=== PATIENT | female | born 1950 | race American Indian/Alaskan Native ===

== ENCOUNTER 2017-04-24 18:08 | Inpatient (IN) | payer MEDICARE ==
[2017-04-24 20:12] LABS: Albumin 2.2 g/dL (3.9-5); Albumin/Globulin Ratio 0.6 %; Bilirubin,Total 0.3 mg/dL (0.1-1.2); Calcium 7.3 mg/dL (8.4-10.2); Potassium 4.6 mmol/L (3.6-5.0); Total Protein 5.6 g/dL (6.3-8.2)
[2017-04-24 20:17] LABS: Mean Corpuscular HGB Conc 29 % (30-34); Mean Corpuscular Hemoglobin 31 pg (28-32); Mean Corpuscular Volume 107 fl (79-97); Platelet Count 361 K/mm3 (140-440); Red Blood Count 2.31 M/mm3 (3.65-5.03)
[2017-04-24 20:18] LABS: BUN/Creatinine Ratio 13.58
[2017-04-24 20:20] LABS: Chloride 94.6 mmol/L (98-107)
[2017-04-24 20:34] LABS: Hematocrit 24.8 % (30.3-42.9); Hemoglobin 7.1 gm/dl (10.1-14.3); Red Cell Distribution Width 24.8 % (13.2-15.2); White Blood Count 89.1 K/mm3 (4.5-11.0)
[2017-04-24 21:27] LABS: INR 1.41 (0.87-1.13)
[2017-04-24 21:28] LABS: Partial Thromboplastin Time 34.6 Sec. (24.2-36.6)
[2017-04-24 21:40] LABS: Basophils % (Manual) 0 % (0.0-1.8); Blastocytes % (Manual) 0 %; Eosinophils % (Manual) 0 % (0.0-4.3)
[2017-04-24 21:41] LABS: Anisocytosis 2+; Diff Status Complete; Platelet Estimate Consistent w Auto; Poikilocytosis 1+
[2017-04-24 21:45] LABS: Dohle Bodies Rare
--- NOTE | 2017-04-25 02:26 | Emergency Department Report ---
ED General Adult HPI - General Chief complaint: Medical Clearance Stated complaint: MISSED DIALYSIS Time Seen by Provider: 04/24/17 20:12 Source: patient, EMS Mode of arrival: Stretcher Limitations: Physical Limitation - History of Present Illness Initial comments: Pt has hx of ESRD on HD. Pt presents to ED requesting to start back on her dialysis. Her last dialysis was3 week ago Pt has h of lung mass, she claims she missed hr dialysis because she was admitted for lung biopsy of her lung mass, Pt has generalize body aches snd pains -: week(s) (3) - Related Data Home Medications Medication Instructions Recorded Confirmed Last Taken Insulin Glargine,Hum.rec.anlog 60 units SQ QHS 01/13/17 03/29/17 03/28/17 [T[place]anthao Solostar] NovoLOG Flexpen 20 units SQ QAC 03/03/17 03/29/17 03/29/17 Acetaminophen [Acetaminophen TAB] 650 mg PO Q6HR PRN 03/29/17 03/29/17 Unknown Previous Rx's Medication Instructions Recorded Last Taken Type ALBUTEROL NEB's [Proventil 0.083% 2.5 mg IH TIDRT PRN #30 nebu 03/21/17 Rx NEBS] Apixaban [Eliquis] 5 mg PO BID #60 tablet 03/21/17 03/29/17 Rx Carvedilol [Coreg] 3.125 mg PO BID 30 Days 03/21/17 03/29/17 Rx Folic Acid/Vit B Comp W-C [Renal 1 cap PO QDAY #30 capsule 03/21/17 03/29/17 Rx Caps] Acetaminophen [Acetaminophen TAB] 650 mg PO Q4H PRN #30 tablet 04/07/17 Unknown Rx Bisacodyl [Dulcolax suppos] 10 mg AL QDAY PRN #30 supp.rect 04/07/17 Unknown Rx Magnesium Hydroxide [Milk of 30 ml PO Q4H PRN #30 oral.liqd 04/07/17 Unknown Rx Magnesia] Allergies Allergy/AdvReac Type Severity Reaction Status Date / Time No Known Allergies Allergy Verified 03/29/17 21:42 ED Review of Systems ROS: Stated complaint: MISSED DIALYSIS Other details as noted in HPI Comment: All other systems reviewed and negative Constitutional: chills, malaise, weakness Eyes: denies: eye pain, eye discharge, vision change ENT: denies: throat pain, dental pain, hearing loss, epistaxis Respiratory: cough, shortness of breath. denies: no symptoms reported, SOB with exertion Cardiovascular: chest pain, edema, syncope, paroxysmal nocturnal dyspnea. denies: palpitations, dyspnea on exertion Endocrine: no symptoms reported Gastrointestinal: denies: constipation, hematemesis Musculoskeletal: back pain, myalgia. denies: joint swelling Skin: denies: change in color, change in hair/nails, other Neurological: headache, weakness. denies: numbness, paresthesias ED Past Medical Hx - Past Medical History Previous Medical History?: Yes Hx Hypertension: Yes (EF 55-60 (03/12)) Hx Diabetes: Yes (insulin dependent) Hx Arthritis: Yes Hx HIV: No Additional medical history: mass found in rt lung @ [facility] - Surgical History Past Surgical History?: Yes Hx Coronary Stent: No Additional Surgical History: biopsy x2 on rt lung - Social History Smoking Status: Former Smoker Substance Use Type: None - Medications Home Medications: Home Medications Medication Instructions Recorded Confirmed Last Taken Type Insulin Glargine,Hum.rec.anlog 60 units SQ QHS 01/13/17 03/29/17 03/28/17 History [[place]jeo Solostar] NovoLOG Flexpen 20 units SQ QAC 03/03/17 03/29/17 03/29/17 History ALBUTEROL NEB's [Proventil 0.083% 2.5 mg IH TIDRT PRN #30 nebu 03/21/1703/29/17 Rx NEBS] Apixaban [Eliquis] 5 mg PO BID #60 tablet 03/21/17 03/29/17 03/29/17 Rx Carvedilol [Coreg] 3.125 mg PO BID 30 Days 03/21/17 03/29/17 03/29/17 Rx Folic Acid/Vit B Comp W-C [Renal 1 cap PO QDAY #30 capsule 03/21/17 03/29/1710/10 Rx Caps] Acetaminophen [Acetaminophen TAB] 650 mg PO Q6HR PRN 03/29/17 03/29/17 Unknown History Acetaminophen [Acetaminophen TAB] 650 mg PO Q4H PRN #30 tablet 04/07/17 Unknown Rx Bisacodyl [Dulcolax suppos] 10 mg AL QDAY PRN #30 supp.rect 04/07/17 Unknown Rx Magnesium Hydroxide [Milk of 30 ml PO Q4H PRN #30 oral.liqd 04/07/17 Unknown Rx Magnesia] ED Physical Exam - General Limitations: Physical Limitation General appearance: alert, anxious, in distress (moderate distress) - Head Head exam: Present: atraumatic, normocephalic - Eye Eye exam: Present: normal appearance, PERRL, EOMI. Absent: scleral icterus Pupils: Present: normal accommodation - ENT ENT exam: Present: normal exam, normal orophraynx, mucous membranes moist - Neck Neck exam: Present: normal inspection, tenderness, full ROM. Absent: meningismus - Respiratory Respiratory exam: Present: wheezes (mild scattered), decreased breath sounds - Cardiovascular Cardiovascular Exam: Present: regular rate, normal rhythm, normal heart sounds. Absent: bradycardia, tachycardia - GI/Abdominal GI/Abdominal exam: Present: soft, distended, tenderness (diffuse), guarding, hypoactive bowel sounds - Rectal Rectal exam: Present: deferred - Extremities Exam Extremities exam: Present: normal inspection, tenderness (both legs), pedal edema - Back Exam Back exam: Present: tenderness, muscle spasm, vertebral tenderness - Neurological Exam Neurological exam: Present: alert, altered, oriented X3, CN II-XII intact ED Course Vital Signs 04/24/17 04/24/17 04/24/17 19:01 19:08 20:00 Temperature 97.5 F L Pulse Rate 86 89 Respiratory 16 19 Rate Blood Pressure 169/65 141/71 Blood Pressure [Left] O2 Sat by Pulse 100 100 100 Oximetry 04/24/17 04/24/17 04/24/17 21:00 22:00 23:00 Temperature Pulse Rate 90 91 H 89 Respiratory 13 18 18 Rate Blood Pressure 141/71 141/71 141/71 Blood Pressure [Left] O2 Sat by Pulse 100 100 100 Oximetry 04/25/17 04/25/17 04/25/17 00:00 01:00 03:00 Temperature Pulse Rate 91 H 89 Respiratory 17 17 18 Rate Blood Pressure 141/71 130/64 Blood Pressure [Left] O2 Sat by Pulse 100 100 100 Oximetry 04/25/17 03:48 Temperature 98 F Pulse Rate 107 H Respiratory 20 Rate Blood Pressure Blood Pressure 146/70 [Left] O2 Sat by Pulse 97 Oximetry - Consultations Consultation #1: 04/25/17 02:25 D/w Dr Johnson, [place] Wheeler on-jen for [facility]. He advised I admit pt to hospitalist for consult Consultation #2: 04/25/17 02:40 Discussed with Hospitalist, he accepts pt's admission ED Medical Decision Making - Lab Data Result diagrams: 04/24/17 19:29 04/24/17 19:29 Critical Care Time: No Critical care attestation.: If time is entered above; I have spent that time in minutes in the direct care of this critically ill patient, excluding procedure time. ED Disposition Clinical Impression: End stage renal disease on dialysis Disposition: OP ADMIT IP TO THIS HOSP Is pt being admited?: Yes Does the pt Need Aspirin: Yes Condition: Serious Time of Disposition: 03:25
--- NOTE | 2017-04-25 02:47 | History and Physical Report ---
History of Present Illness Date of examination: 04/25/17 Date of admission: 04/25/17 Chief complaint: Nausea and vomiting, Diarrhea Missed dialysis for 3 weeks History of present illness: Patient is 66 -year-old with history of hypertension, and diabete,s coronary disease ,hyperlipidemia , DVT. She also has a history of lung mass. She was sent in [facility] because of nausea, vomiting, diarrhea and also she had missed dialysis for 3 weeks. History obtained from patient and son at bedside. According to them , patient had initially declined dialysis for 3 weeks however she had changed her mind and now wants to have dialysis done. No chest pain or shortness of breath. In ED, she is afebrile, but has marked leukocytosis. She will be admitted for further management Past History Past Medical History: CAD, diabetes, DVT (right internal jugular), hypertension , hyperlipidemia, stroke, other (Lung mass) Past Surgical History: Other (av fistula) Social history: lives with family, full code. denies: smoking (Former smoker), alcohol abuse Medications and Allergies Allergies Allergy/AdvReac Type Severity Reaction Status Date / Time No Known Allergies Allergy Verified 03/29/17 21:42 Home Medications Medication Instructions Recorded Confirmed Last Taken Type Insulin Glargine,Hum.rec.anlog 60 units SQ QHS 01/13/17 03/29/17 03/28/17 History [Manuel Jo] NovoLOG Flexpen 20 units SQ QAC 03/03/17 03/29/17 03/29/17 History ALBUTEROL NEB's [Proventil 0.083% 2.5 mg IH TIDRT PRN #30 nebu 03/21/1703/29/17 Rx NEBS] Apixaban [Eliquis] 5 mg PO BID #60 tablet 03/21/17 03/29/17 03/29/17 Rx Carvedilol [Coreg] 3.125 mg PO BID 30 Days 03/21/17 03/29/17 03/29/17 Rx Folic Acid/Vit B Comp W-C [Renal 1 cap PO QDAY #30 capsule 03/21/17 03/29/1710/10 Rx Caps] Acetaminophen [Acetaminophen TAB] 650 mg PO Q6HR PRN 03/29/17 03/29/17 Unknown History Acetaminophen [Acetaminophen TAB] 650 mg PO Q4H PRN #30 tablet 04/07/17 Unknown Rx Bisacodyl [Dulcolax suppos] 10 mg HI QDAY PRN #30 supp.rect 04/07/17 Unknown Rx Magnesium Hydroxide [Milk of 30 ml PO Q4H PRN #30 oral.liqd 04/07/17 Unknown Rx Magnesia] Review of Systems All systems: negative (No chest pain, no shortness of breath,no fever. All other systems reviewed and are negative) Exam - Physical Exam Narrative exam: Gen Appearance: Not in acute distress, obese HEENT: normocephalic, atraumatic Neck: supple, no JVD Lungs: Clear to auscultation, bilaterally, no rales, no wheezing Heart: S1 and S2 regular, no murmurs, rubs or gallop Abdomen: Soft , non tender, non distended, normal bowel sounds Extremity: Ulcers heels of both feet, No edema, o clubbing or cyanosis Neuro : Awake,alert, oriented x 3, moves all extremities Sacral decubitus ulcers - Constitutional Vitals: Temp Pulse Resp BP Pulse Ox 97.5 F L 89 17 130/64 100 04/24/17 19:08 04/25/17 01:00 04/25/17 01:00 04/25/17 01:00 04/25/17 01:00 Results - Labs CBC & Chem 7: 04/24/17 19:29 04/24/17 19:29 Labs: Abnormal lab results 04/24/17 04/24/17 04/24/17 Range/Units 19:29 19:29 Unknown WBC 89.1 H* (4.5-11.0) K/mm3 RBC 2.31 L (3.65-5.03) M/mm3 Hgb 7.1 L (10.1-14.3) gm/dl Hct 24.8 L (30.3-42.9) % MCV 107 H (79-97) fl MCHC 29 L (30-34) % RDW 24.8 H (13.2-15.2) % Seg Neuts % (Manual) 97.0 H (40.0-70.0) % Lymphocytes % (Manual) 1.0 L (13.4-35.0) % Seg Neutrophils # Man 86.4 H (1.8-7.7) K/mm3 Lymphocytes # (Manual) 0.9 L (1.2-5.4) K/mm3 Monocytes # (Manual) 1.8 H (0.0-0.8) K/mm3 PT 18.0 H (12.2-14.9) Sec. INR 1.41 H (0.87-1.13) Chloride 94.6 L (98-107) mmol/L Carbon Dioxide 11 L (22-30) mmol/L BUN 182 H (7-17) mg/dL Creatinine 13.4 H (0.7-1.2) mg/dL Glucose 198 H (65-100) mg/dL Calcium 7.3 L (8.4-10.2) mg/dL Alkaline Phosphatase 266 H (35-129) units/L Total Protein 5.6 L (6.3-8.2) g/dL Albumin 2.2 L (3.9-5) g/dL Assessment and Plan Uremia after missing dialysis for 3 weeks. Admit to med/surg with remote Telemetry. Consult Nephrology ESRD, was on dialysis, but missed dialysis for 3 weeks. According to son, she had declined dialysis before but now wants to resume dialysis Lactic acidosis, to r/o sepsis. Obtain blood culture, start empiric Zosyn and Vancomycin. Nausea and Vomiting due to Uremia. zofran iv prn Diarrhea. Obtain stool c.diff and stool cultures. Decubitus ulcers. Consult wound care Nurse Lung mass. She had declined further workup Marked leukocytosis, WBC 89. Consult Veneer Drier Feeder, to evaluate. Empiric Zosyn and Vancomycin Full code status
[2017-04-25] MEDS ORDERED: DULCOLAX PR PRN ×2 (03:07→03:16)
[2017-04-25] MEDS ORDERED: PROVENTIL IH PRN (03:16)
[2017-04-25] MEDS ORDERED: VANCOMYCIN VIAL IV ONE (03:21)
[2017-04-25] MEDS ORDERED: VANCOMYCIN 2,000 MG in NACL 0.9% 500 ML 500 ML IV ONE (04:00)
[2017-04-25] MEDS ORDERED: VANCOMYCIN PHARMACY TO DOSE IV SCH (04:00)
[2017-04-25] MEDS: ELIQUIS PO SCH ×3 (05:45→22:29)
[2017-04-25] MEDS ORDERED: ZOSYN/NS 4.5GM/100ML 4.5 GM/100 ML VIAL IV SCH (06:00)
[2017-04-25] MEDS: ZOSYN/NS 2.25 GM/50ML 2.25 GM/50 ML BAG IV SCH ×3 (06:50→22:33)
[2017-04-25 07:57] LABS: Hematocrit 22.9 % (30.3-42.9); Hemoglobin 6.7 gm/dl (10.1-14.3); Mean Corpuscular HGB Conc 29 % (30-34); Mean Corpuscular Hemoglobin 29 pg (28-32); Mean Corpuscular Volume 101 fl (79-97); Platelet Count 338 K/mm3 (140-440); Red Blood Count 2.27 M/mm3 (3.65-5.03)
[2017-04-25 08:20] LABS: Calcium 7.5 mg/dL (8.4-10.2); Chloride 93.7 mmol/L (98-107); Potassium 4.4 mmol/L (3.6-5.0)
[2017-04-25 08:27] LABS: Red Cell Distribution Width 23.9 % (13.2-15.2); White Blood Count 92.1 K/mm3 (4.5-11.0)
[2017-04-25 09:35] LABS: Anisocytosis 2+; Basophils % (Manual) 0 % (0.0-1.8); Blastocytes % (Manual) 0 %; Eosinophils % (Manual) 0 % (0.0-4.3)
[2017-04-25 09:36] LABS: Diff Status Complete; Dohle Bodies Few; Poikilocytosis 1+; Polychromasia Few
[2017-04-25] MEDS: COREG PO SCH ×2 (09:41→22:28)
[2017-04-25] MEDS: Renal Caps PO SCH (09:41)
[2017-04-25] MEDS: NOVOLOG SUB-Q SCH ×3 (09:41→16:30)
[2017-04-25 09:44] LABS: BUN/Creatinine Ratio 13.3
--- NOTE | 2017-04-25 10:34 | Progress Note ---
Assessment and Plan Assessment and plan: Mrs. Tamez is a 66-year-old woman with past medical history for Right IJ DVT on eliquis hypertension, diabetes mellitus with neuropathy, foot drop, right internal jugular vein thrombosis, end-stage renal disease on hemodialysis mwf, and right upper lobe lung mass for which tissue diagnosis has not yet been obtained as bronchoscopic lung biopsy was unsuccessful sometime in February 2017. Therefore, recommendations were to have CT guided biopsy. This was completed but but sample from biopsy was too small. A repeat biopsy was planned but patient refused. The patient also saw thoracic surgery who felt that the patient is not a candidate for surgery; therefore, patient was discharged home on 04/07/17. She has missed hemodialysis sessions and now presents with volume overload, shortness of breath with nausea. -Acute hypoxic respiratory failure due to volume overload: Treat with oxygen -End Stage renal disease, noncompliant with hemodialysis related to volume overload: Needing hemodialysis, consulted circular saw filer -Severe leukocytosis, suspicious for malignancy from lung mass -Right IJ DVT on Eliquis -DVT prophylaxis on Eliquis. History Interval history: Patient was seen and examined. Follow-up on current diagnosis/ams. Overnight uneventful. Patient denies any chest pain, nausea/vomiting or severe headaches. Imaging, nursing note, chart, labs and old chart reviewed. Discussed with patient. +SOB and volume overload. Hospitalist Physical - Physical exam Narrative exam: GEN: WDWN, NAD, AWAKE, ALERT, ORIENTATEDx 2 HEENT: NCAT, EOMI, PERRL, OP Clear NECK: supple, no adenopathy, no thyromegaly, no JVD CVS/HEART: RRR, NORMAL S1S2, NO JVD, pulses present bilaterally CHEST/LUNGS: bilateral crackles, Symmetrical chest expansion, reduce air entry bilaterally GI/Abdomen: soft, NTND, dependent flank edema, good bowel sounds, no guarding or rebound /Bladder: no suprapubic tenderness, no CVA or paraspinal tenderness EXT/Skin: bilateral pitting significant leg edema MSK: FROM x 4 Neuro: CN 2-12 grossly intact, no new focal deficits Psych: calm - Constitutional Vitals: Temp Pulse Resp BP Pulse Ox 97.5 F L 95 H 20 138/76 96 04/25/17 09:07 04/25/17 09:41 04/25/17 09:07 04/25/17 09:41 04/25/17 09:07 Results - Labs CBC & Chem 7: 04/25/17 07:22 04/25/17 07:22 Labs: Laboratory Last Values WBC 92.1 K/mm3 (4.5-11.0) H* 04/25/17 07:22 RBC 2.27 M/mm3 (3.65-5.03) L 04/25/17 07:22 Hgb 6.7 gm/dl (10.1-14.3) L 04/25/17 07:22 Hct 22.9 % (30.3-42.9) L 04/25/17 07:22 MCV 101 fl (79-97) H 04/25/17 07:22 MCH 29 pg (28-32) 04/25/17 07:22 MCHC 29 % (30-34) L 04/25/17 07:22 RDW 23.9 % (13.2-15.2) H 04/25/17 07:22 Plt Count 338 K/mm3 (140-440) 04/25/17 07:22 Add Manual Diff Complete 04/25/17 07:22 Total Counted 200 04/25/17 07:22 Seg Neutrophils % Maintenance Inspector 04/25/17 07:22 Seg Neuts % (Manual) 94.0 % (40.0-70.0) H 04/25/17 07:22 Band Neutrophils % 3.5 % 04/25/17 07:22 Lymphocytes % (Manual) 1.5 % (13.4-35.0) L 04/25/17 07:22 Reactive Lymphs % (Man) 0 % 04/25/17 07:22 Monocytes % (Manual) 1.0 % (0.0-7.3) 04/25/17 07:22 Eosinophils % (Manual) 0 % (0.0-4.3) 04/25/17 07:22 Basophils % (Manual) 0 % (0.0-1.8) 04/25/17 07:22 Metamyelocytes % 0 % 04/25/17 07:22 Myelocytes % 0 % 04/25/17 07:22 Promyelocytes % 0 % 04/25/17 07:22 Blast Cells % 0 % 04/25/17 07:22 Nucleated RBC % Not Reportable 04/25/17 07:22 Seg Neutrophils # Man 86.6 K/mm3 (1.8-7.7) H 04/25/17 07:22 Band Neutrophils # 3.2 K/mm3 04/25/17 07:22 Lymphocytes # (Manual) 1.4 K/mm3 (1.2-5.4) 04/25/17 07:22 Abs React Lymphs (Man) 0.0 K/mm3 04/25/17 07:22 Monocytes # (Manual) 0.9 K/mm3 (0.0-0.8) H 04/25/17 07:22 Eosinophils # (Manual) 0.0 K/mm3 (0.0-0.4) 04/25/17 07:22 Basophils # (Manual) 0.0 K/mm3 (0.0-0.1) 04/25/17 07:22 Metamyelocytes # 0.0 K/mm3 04/25/17 07:22 Myelocytes # 0.0 K/mm3 04/25/17 07:22 Promyelocytes # 0.0 K/mm3 04/25/17 07:22 Blast Cells # 0.0 K/mm3 04/25/17 07:22 WBC Morphology Not Reportable 04/25/17 07:22 Hypersegmented Neuts Not Reportable 04/25/17 07:22 Hyposegmented Neuts Not Reportable 04/25/17 07:22 Hypogranular Neuts Not Reportable 04/25/17 07:22 Smudge Cells Not Reportable 04/25/17 07:22 Toxic Granulation Not Reportable 04/25/17 07:22 Toxic Vacuolation Not Reportable 04/25/17 07:22 Dohle Bodies Few 04/25/17 07:22 Pelger-Huet Anomaly Not Reportable 04/25/17 07:22 Jeremiah Rods Not Reportable 04/25/17 07:22 Platelet Estimate Appears normal 04/25/17 07:22 Clumped Platelets Not Reportable 04/25/17 07:22 Plt Clumps, EDTA Not Reportable 04/25/17 07:22 Large Platelets Not Reportable 04/25/17 07:22 Giant Platelets Not Reportable 04/25/17 07:22 Platelet Satelliting Not Reportable 04/25/17 07:22 Plt Morphology Comment Not Reportable 04/25/17 07:22 RBC Morphology Not Reportable 04/25/17 07:22 Dimorphic RBCs Not Reportable 04/25/17 07:22 Polychromasia Few 04/25/17 07:22 Hypochromasia Not Reportable 04/25/17 07:22 Poikilocytosis 1+ 04/25/17 07:22 Anisocytosis 2+ 04/25/17 07:22 Microcytosis Not Reportable 04/25/17 07:22 Macrocytosis Not Reportable 04/25/17 07:22 Spherocytes Not Reportable 04/25/17 07:22 Pappenheimer Bodies Not Reportable 04/25/17 07:22 Sickle Cells Not Reportable 04/25/17 07:22 Target Cells Not Reportable 04/25/17 07:22 Tear Drop Cells Not Reportable 04/25/17 07:22 Ovalocytes Not Reportable 04/25/17 07:22 Helmet Cells Not Reportable 04/25/17 07:22 [place] Bodies Not Reportable 04/25/17 07:22 [place] Rings Not Reportable 04/25/17 07:22 [place] Cells Not Reportable 04/25/17 07:22 Bite Cells Not Reportable 04/25/17 07:22 Crenated Cell Not Reportable 04/25/17 07:22 Elliptocytes Not Reportable 04/25/17 07:22 Acanthocytes (Spur) Not Reportable 04/25/17 07:22 Rouleaux Not Reportable 04/25/17 07:22 Hemoglobin C Crystals Not Reportable 04/25/17 07:22 Schistocytes Not Reportable 04/25/17 07:22 Malaria parasites Not Reportable 04/25/17 07:22 Anthony Bodies Not Reportable 04/25/17 07:22 Hem Pathologist Commnt No 04/25/17 07:22 PT 18.0 Sec. (12.2-14.9) H 04/24/17 Unknown INR 1.41 (0.87-1.13) H 04/24/17 Unknown APTT 34.6 Sec. (24.2-36.6) 04/24/17 Unknown Sodium 142 mmol/L (137-145) 04/25/17 07:22 Potassium 4.4 mmol/L (3.6-5.0) 04/25/17 07:22 Chloride 93.7 mmol/L (98-107) L 04/25/17 07:22 Carbon Dioxide 11 mmol/L (22-30) L 04/25/17 07:22 Anion Gap 42 mmol/L 04/25/17 07:22 BUN 177 mg/dL (7-17) H 04/25/17 07:22 Creatinine 13.3 mg/dL (0.7-1.2) H 04/25/17 07:22 Estimated GFR 3 ml/min 04/25/17 07:22 BUN/Creatinine Ratio 13.30 % 04/25/17 07:22 Glucose 195 mg/dL (65-100) H 04/25/17 07:22 POC Glucose 227 (70-105) H 04/25/17 07:45 Lactic Acid 1.10 mmol/L (0.7-2.0) 04/25/17 08:37 Calcium 7.5 mg/dL (8.4-10.2) L 04/25/17 07:22 Total Bilirubin 0.30 mg/dL (0.1-1.2) 04/24/17 19:29 AST 11 units/L (5-40) 04/24/17 19:29 ALT 8 units/L (7-56) 04/24/17 19:29 Alkaline Phosphatase 266 units/L (35-129) H 04/24/17 19:29 Total Protein 5.6 g/dL (6.3-8.2) L 04/24/17 19:29 Albumin 2.2 g/dL (3.9-5) L 04/24/17 19:29 Albumin/Globulin Ratio 0.6 % 04/24/17 19:29 Lipase 57 units/L (13-60) 04/24/17 19:29
--- NOTE | 2017-04-25 10:47 | Hem/Onc Progress Note ---
Assessment and Plan 1- leukocytosis- I suspect leukemoid reaction with malignancy. would cover with antibiotics until infection is ruled out. 2- Lung cancer - no tissue diagnosis. patient is not a candidate for any active treatment and hospice is appropriate 3- ESRD to resume dialysis. Subjective Date of service: 04/25/17 Principal diagnosis: leukocytosis Interval history: pt with ESRD on dialysis but missed few treatments. Pt also has lung mass and bx was not definitive. Dr Díaz saw the patient and recommended hospice with poor performance status making patient not a candidate for any treatment for malignancy. She is here now with high WBC also. NO fevers or chills PT has N/V Objective - Constitutional Vitals: Last Vital Signs Temp 97.5 F L 04/25/17 09:07 Pulse 95 H 04/25/17 09:41 Resp 20 04/25/17 09:07 BP 138/76 04/25/17 09:41 Pulse Ox 96 04/25/17 09:07 General appearance: no acute distress Performance status: 4-completely disabled - EENT Eyes: PERRL - Respiratory Respiratory effort: Positive: normal Respiratory: bilateral: CTA - Cardiovascular Rhythm: regular Heart Sounds: Present: S1 & S2 Extremities: no ischemia - Gastrointestinal General gastrointestinal: Present: soft, tender - Labs Lab Results: Laboratory Results - last 24 hr 04/25/17 04/25/17 04/25/17 07:22 07:22 07:22 WBC 92.1 H* RBC 2.27 L Hgb 6.7 L Hct 22.9 L MCV 101 H MCH 29 MCHC 29 L RDW 23.9 H Plt Count 338 Add Manual Diff Complete Total Counted 200 Seg Neutrophils % [employer] [place] Seg Neuts % (Manual) 94.0 H Band Neutrophils % 3.5 Lymphocytes % (Manual) 1.5 L Reactive Lymphs % (Man) 0 Monocytes % (Manual) 1.0 Eosinophils % (Manual) 0 Basophils % (Manual) 0 Metamyelocytes % 0 Myelocytes % 0 Promyelocytes % 0 Blast Cells % 0 Nucleated RBC % Not Reportable Seg Neutrophils # Man 86.6 H Band Neutrophils # 3.2 Lymphocytes # (Manual) 1.4 Abs React Lymphs (Man) 0.0 Monocytes # (Manual) 0.9 H Eosinophils # (Manual) 0.0 Basophils # (Manual) 0.0 Metamyelocytes # 0.0 Myelocytes # 0.0 Promyelocytes # 0.0 Blast Cells # 0.0 WBC Morphology Not Reportable Hypersegmented Neuts Not Reportable Hyposegmented Neuts Not Reportable Hypogranular Neuts Not Reportable Smudge Cells Not Reportable Toxic Granulation Not Reportable Toxic Vacuolation Not Reportable Dohle Bodies Few Pelger-Huet Anomaly Not Reportable Jeremiah Rods Not Reportable Platelet Estimate Appears normal Clumped Platelets Not Reportable Plt Clumps, EDTA Not Reportable Large Platelets Not Reportable Giant Platelets Not Reportable Platelet Satelliting Not Reportable Plt Morphology Comment Not Reportable RBC Morphology Not Reportable Dimorphic RBCs Not Reportable Polychromasia Few Hypochromasia Not Reportable Poikilocytosis 1+ Anisocytosis 2+ Microcytosis Not Reportable Macrocytosis Not Reportable Spherocytes Not Reportable Pappenheimer Bodies Not Reportable Sickle Cells Not Reportable Target Cells Not Reportable Tear Drop Cells Not Reportable Ovalocytes Not Reportable Helmet Cells Not Reportable [place] Bodies Not Reportable [place] Rings Not Reportable [place] Cells Not Reportable Bite Cells Not Reportable Crenated Cell Not Reportable Elliptocytes Not Reportable Acanthocytes (Spur) Not Reportable Rouleaux Not Reportable Hemoglobin C Crystals Not Reportable Schistocytes Not Reportable Malaria parasites Not Reportable Anthony Bodies Not Reportable Hem Pathologist Commnt No Sodium 142 Potassium 4.4 Chloride 93.7 L Carbon Dioxide 11 L Anion Gap 42 BUN 177 H Creatinine 13.3 H Estimated GFR 3 BUN/Creatinine Ratio 13.30 Glucose 195 H POC Glucose Lactic Acid 1.00 Calcium 7.5 L 04/25/17 04/25/17 07:45 08:37 WBC RBC Hgb Hct MCV MCH MCHC RDW Plt Count Add Manual Diff Total Counted Seg Neutrophils % Seg Neuts % (Manual) Band Neutrophils % Lymphocytes % (Manual) Reactive Lymphs % (Man) Monocytes % (Manual) Eosinophils % (Manual) Basophils % (Manual) Metamyelocytes % Myelocytes % Promyelocytes % Blast Cells % Nucleated RBC % Seg Neutrophils # Man Band Neutrophils # Lymphocytes # (Manual) Abs React Lymphs (Man) Monocytes # (Manual) Eosinophils # (Manual) Basophils # (Manual) Metamyelocytes # Myelocytes # Promyelocytes # Blast Cells # WBC Morphology Hypersegmented Neuts Hyposegmented Neuts Hypogranular Neuts Smudge Cells Toxic Granulation Toxic Vacuolation Dohle Bodies Pelger-Huet Anomaly Jeremiah Rods Platelet Estimate Clumped Platelets Plt Clumps, EDTA Large Platelets Giant Platelets Platelet Satelliting Plt Morphology Comment RBC Morphology Dimorphic RBCs Polychromasia Hypochromasia Poikilocytosis Anisocytosis Microcytosis Macrocytosis Spherocytes Pappenheimer Bodies Sickle Cells Target Cells Tear Drop Cells Ovalocytes Helmet Cells [place] Bodies [place] Rings Angelica Cells Bite Cells Crenated Cell Elliptocytes Acanthocytes (Spur) Rouleaux Hemoglobin C Crystals Schistocytes Malaria parasites Anthony Bodies Hem Pathologist Commnt Sodium Potassium Chloride Carbon Dioxide Anion Gap BUN Creatinine Estimated GFR BUN/Creatinine Ratio Glucose POC Glucose 227 H Lactic Acid 1.10 Calcium
--- NOTE | 2017-04-25 11:06 | Progress Note ---
Assessment and Plan Impression: * ESRD on HD MWF * AMS * Right upper lobe lung mass * RIJ acute DVT * Leukocytosis, persistent * Type II DM * Anemia secondary to ESRD * Secondary hyperparathyroidism * Hypokalemia Plan: * Continue hemodialysis today MWF * UF as tolerated * heme notes reviewed, agree with hospice * Anticoagulation per primary team * Epogen for goal Hb 10-12 * Renal diet/fluid restriction * Adjust medication doses for renal function * poor overall prognosis Subjective Date of service: 04/25/17 Principal diagnosis: leukocytosis Interval history: General appearance: well-developed, well-nourished, appears stated age EENT: PERRL, mucous membranes moist Neck: no JVD, no thyromegaly, no carotid bruit, supple, other (right IJ PermCath in place) Respiratory: Present: Clear to Ascultation Cardiology: regular, normal heart rate Gastrointestinal: normal, normoactive bowel sounds Integumentary: no rash, other (AV graft in her left upper arm. Good bruit and thrill) Objective - Vital Signs Vital signs: Vital Signs - 12hr 04/25/17 04/25/17 04/25/17 03:48 05:00 08:27 Temperature 98 F Pulse Rate 107 H Pulse Rate [ 98 H Right From Monitor] Respiratory 20 18 Rate Blood Pressure Blood Pressure 146/70 [Left] O2 Sat by Pulse 97 98 97 Oximetry 04/25/17 04/25/17 09:07 09:41 Temperature 97.5 F L Pulse Rate 95 H 95 H Pulse Rate [ Right From Monitor] Respiratory 20 Rate Blood Pressure 138/76 Blood Pressure 138/76 [Left] O2 Sat by Pulse 96 Oximetry - Lab 04/25/17 07:22 04/25/17 07:22 Most recent lab results Calcium 7.5 mg/dL (8.4-10.2) L 04/25/17 07:22
[2017-04-25] MEDS ORDERED: NACL 0.9% 100 ML IV PRN (11:07)
[2017-04-25] MEDS ORDERED: NACL 0.9 (PRIMING MACHINE ONLY DIALYSIS) MC ONE (16:15)
[2017-04-25] MEDS: MORPHINE IV PRN (17:28)
[2017-04-25] MEDS: PROCRIT IV PRN (17:30)
[2017-04-25] MEDS: ZOFRAN IV PRN (17:31)
[2017-04-25] MEDS ORDERED: INSULIN GLARGINE HUM REC ANLOG 60 UNIT SQ SCH (22:00)
[2017-04-25] MEDS: LEVEMIR SUB-Q SCH (22:29)
[2017-04-26] MEDS: ZOSYN/NS 2.25 GM/50ML 2.25 GM/50 ML BAG IV SCH (06:36)
[2017-04-26] MEDS: NOVOLOG SUB-Q SCH ×3 (09:01→17:21)
[2017-04-26] MEDS: COREG PO SCH ×2 (09:04→22:21)
[2017-04-26] MEDS: ELIQUIS PO SCH ×2 (09:05→22:20)
[2017-04-26] MEDS: Renal Caps PO SCH (09:05)
--- NOTE | 2017-04-26 12:08 | Progress Note ---
Assessment and Plan Assessment and plan: Mrs. Tamez is a 66-year-old woman with past medical history for Right IJ DVT on eliquis hypertension, diabetes mellitus with neuropathy, foot drop, right internal jugular vein thrombosis, end-stage renal disease on hemodialysis mwf, and right upper lobe lung mass for which tissue diagnosis has not yet been obtained as bronchoscopic lung biopsy was unsuccessful sometime in February 2017. Therefore, recommendations were to have CT guided biopsy. This was completed but but sample from biopsy was too small. A repeat biopsy was planned but patient refused. The patient also saw thoracic surgery who felt that the patient is not a candidate for surgery; therefore, patient was discharged home on 04/07/17. She has missed hemodialysis sessions and now presents with volume overload, shortness of breath with nausea. -Acute hypoxic respiratory failure due to volume overload: Treat with oxygen -End Stage renal disease, noncompliant with hemodialysis related to volume overload: Needing hemodialysis, consulted captain cannery tender -Severe leukocytosis, suspicious for malignancy from lung mass vs infection on empiric iv vanc and zosyn (not given because she lost iv access)C. diffe negative==>Sepsis from bacterial AGE with c. diffe, poa: start flagyl, pt has not iv line except vas cath for hemodialysis, -Right IJ DVT on Eliquis -DVT prophylaxis on Eliquis. New issue, C. diffe positive and no peripheral IV line. Consult iv team, isolation precautions Stop iv zosyn, continue iv vancomycin due to Enterococcus from wound, consulted ID History Interval history: Patient was seen and examined. Follow-up on current diagnosis/ams. Overnight uneventful. Patient denies any chest pain, nausea/vomiting or severe headaches. Imaging, nursing note, chart, labs and old chart reviewed. Discussed with patient. +SOB and volume overload. Still sob Hospitalist Physical - Physical exam Narrative exam: GEN: WDWN, NAD, AWAKE, ALERT, ORIENTATED x 2 with periods of lucidity HEENT: NCAT, EOMI, PERRL, OP Clear NECK: supple, no adenopathy, no thyromegaly, no JVD CVS/HEART: RRR, NORMAL S1S2, NO JVD, pulses present bilaterally CHEST/LUNGS: bilateral crackles, Symmetrical chest expansion, reduce air entry bilaterally GI/Abdomen: soft, NTND, dependent flank edema, good bowel sounds, no guarding or rebound /Bladder: no suprapubic tenderness, no CVA or paraspinal tenderness EXT/Skin: bilateral pitting significant leg edema MSK: FROM x 4 Neuro: CN 2-12 grossly intact, no new focal deficits Psych: upset, poor insight - Constitutional Vitals: Temp Pulse Resp BP Pulse Ox 98.2 F 98 H 20 150/71 97 04/26/17 08:26 04/26/17 09:04 04/26/17 08:26 04/26/17 09:04 04/26/17 08:26 Results - Labs CBC & Chem 7: 04/25/17 07:22 04/25/17 07:22 Labs: Laboratory Last Values WBC 92.1 K/mm3 (4.5-11.0) H* 04/25/17 07:22 RBC 2.27 M/mm3 (3.65-5.03) L 04/25/17 07:22 Hgb 6.7 gm/dl (10.1-14.3) L 04/25/17 07:22 Hct 22.9 % (30.3-42.9) L 04/25/17 07:22 MCV 101 fl (79-97) H 04/25/17 07:22 MCH 29 pg (28-32) 04/25/17 07:22 MCHC 29 % (30-34) L 04/25/17 07:22 RDW 23.9 % (13.2-15.2) H 04/25/17 07:22 Plt Count 338 K/mm3 (140-440) 04/25/17 07:22 Add Manual Diff Complete 04/25/17 07:22 Total Counted 200 04/25/17 07:22 Seg Neutrophils % Art Education Professor 04/25/17 07:22 Seg Neuts % (Manual) 94.0 % (40.0-70.0) H 04/25/17 07:22 Band Neutrophils % 3.5 % 04/25/17 07:22 Lymphocytes % (Manual) 1.5 % (13.4-35.0) L 04/25/17 07:22 Reactive Lymphs % (Man) 0 % 04/25/17 07:22 Monocytes % (Manual) 1.0 % (0.0-7.3) 04/25/17 07:22 Eosinophils % (Manual) 0 % (0.0-4.3) 04/25/17 07:22 Basophils % (Manual) 0 % (0.0-1.8) 04/25/17 07:22 Metamyelocytes % 0 % 04/25/17 07:22 Myelocytes % 0 % 04/25/17 07:22 Promyelocytes % 0 % 04/25/17 07:22 Blast Cells % 0 % 04/25/17 07:22 Nucleated RBC % Not Reportable 04/25/17 07:22 Seg Neutrophils # Man 86.6 K/mm3 (1.8-7.7) H 04/25/17 07:22 Band Neutrophils # 3.2 K/mm3 04/25/17 07:22 Lymphocytes # (Manual) 1.4 K/mm3 (1.2-5.4) 04/25/17 07:22 Abs React Lymphs (Man) 0.0 K/mm3 04/25/17 07:22 Monocytes # (Manual) 0.9 K/mm3 (0.0-0.8) H 04/25/17 07:22 Eosinophils # (Manual) 0.0 K/mm3 (0.0-0.4) 04/25/17 07:22 Basophils # (Manual) 0.0 K/mm3 (0.0-0.1) 04/25/17 07:22 Metamyelocytes # 0.0 K/mm3 04/25/17 07:22 Myelocytes # 0.0 K/mm3 04/25/17 07:22 Promyelocytes # 0.0 K/mm3 04/25/17 07:22 Blast Cells # 0.0 K/mm3 04/25/17 07:22 WBC Morphology Not Reportable 04/25/17 07:22 Hypersegmented Neuts Not Reportable 04/25/17 07:22 Hyposegmented Neuts Not Reportable 04/25/17 07:22 Hypogranular Neuts Not Reportable 04/25/17 07:22 Smudge Cells Not Reportable 04/25/17 07:22 Toxic Granulation Not Reportable 04/25/17 07:22 Toxic Vacuolation Not Reportable 04/25/17 07:22 Dohle Bodies Few 04/25/17 07:22 Pelger-Huet Anomaly Not Reportable 04/25/17 07:22 Jeremiah Rods Not Reportable 04/25/17 07:22 Platelet Estimate Appears normal 04/25/17 07:22 Clumped Platelets Not Reportable 04/25/17 07:22 Plt Clumps, EDTA Not Reportable 04/25/17 07:22 Large Platelets Not Reportable 04/25/17 07:22 Giant Platelets Not Reportable 04/25/17 07:22 Platelet Satelliting Not Reportable 04/25/17 07:22 Plt Morphology Comment Not Reportable 04/25/17 07:22 RBC Morphology Not Reportable 04/25/17 07:22 Dimorphic RBCs Not Reportable 04/25/17 07:22 Polychromasia Few 04/25/17 07:22 Hypochromasia Not Reportable 04/25/17 07:22 Poikilocytosis 1+ 04/25/17 07:22 Anisocytosis 2+ 04/25/17 07:22 Microcytosis Not Reportable 04/25/17 07:22 Macrocytosis Not Reportable 04/25/17 07:22 Spherocytes Not Reportable 04/25/17 07:22 Pappenheimer Bodies Not Reportable 04/25/17 07:22 Sickle Cells Not Reportable 04/25/17 07:22 Target Cells Not Reportable 04/25/17 07:22 Tear Drop Cells Not Reportable 04/25/17 07:22 Ovalocytes Not Reportable 04/25/17 07:22 Helmet Cells Not Reportable 04/25/17 07:22 [place] Bodies Not Reportable 04/25/17 07:22 Powell Rings Not Reportable 04/25/17 07:22 Angelica Cells Not Reportable 04/25/17 07:22 Bite Cells Not Reportable 04/25/17 07:22 Crenated Cell Not Reportable 04/25/17 07:22 Elliptocytes Not Reportable 04/25/17 07:22 Acanthocytes (Spur) Not Reportable 04/25/17 07:22 Rouleaux Not Reportable 04/25/17 07:22 Hemoglobin C Crystals Not Reportable 04/25/17 07:22 Schistocytes Not Reportable 04/25/17 07:22 Malaria parasites Not Reportable 04/25/17 07:22 Anthony Bodies Not Reportable 04/25/17 07:22 Hem Pathologist Commnt No 04/25/17 07:22 PT 18.0 Sec. (12.2-14.9) H 04/24/17 Unknown INR 1.41 (0.87-1.13) H 04/24/17 Unknown APTT 34.6 Sec. (24.2-36.6) 04/24/17 Unknown Sodium 142 mmol/L (137-145) 04/25/17 07:22 Potassium 4.4 mmol/L (3.6-5.0) 04/25/17 07:22 Chloride 93.7 mmol/L (98-107) L 04/25/17 07:22 Carbon Dioxide 11 mmol/L (22-30) L 04/25/17 07:22 Anion Gap 42 mmol/L 04/25/17 07:22 BUN 177 mg/dL (7-17) H 04/25/17 07:22 Creatinine 13.3 mg/dL (0.7-1.2) H 04/25/17 07:22 Estimated GFR 3 ml/min 04/25/17 07:22 BUN/Creatinine Ratio 13.30 % 04/25/17 07:22 Glucose 195 mg/dL (65-100) H 04/25/17 07:22 POC Glucose 195 (70-105) H 04/26/17 11:33 Lactic Acid 1.10 mmol/L (0.7-2.0) 04/25/17 08:37 Calcium 7.5 mg/dL (8.4-10.2) L 04/25/17 07:22 Total Bilirubin 0.30 mg/dL (0.1-1.2) 04/24/17 19:29 AST 11 units/L (5-40) 04/24/17 19:29 ALT 8 units/L (7-56) 04/24/17 19:29 Alkaline Phosphatase 266 units/L (35-129) H 04/24/17 19:29 Total Protein 5.6 g/dL (6.3-8.2) L 04/24/17 19:29 Albumin 2.2 g/dL (3.9-5) L 04/24/17 19:29 Albumin/Globulin Ratio 0.6 % 04/24/17 19:29 Lipase 57 units/L (13-60) 04/24/17 19:29 Random Vancomycin 2.3 ug/mL (0-40.0) 04/26/17 04:16
--- NOTE | 2017-04-26 12:29 | Progress Note ---
Assessment and Plan Impression: * ESRD on HD MWF * AMS * Right upper lobe lung mass * RIJ acute DVT * Leukocytosis, persistent * Type II DM * Anemia secondary to ESRD * Secondary hyperparathyroidism * Hypokalemia Plan: * Continue hemodialysis MWF * UF as tolerated * heme notes reviewed, agree with hospice ashu if patient continues to miss hd, she missed 2 weeks of dialysis * Anticoagulation per primary team * Epogen for goal Hb 10-12 * Renal diet/fluid restriction * Adjust medication doses for renal function * poor overall prognosis Subjective Date of service: 04/26/17 Principal diagnosis: leukocytosis Interval history: General appearance: well-developed, well-nourished, appears stated age EENT: PERRL, mucous membranes moist Neck: no JVD, no thyromegaly, no carotid bruit, supple, other (right IJ PermCath in place) Respiratory: Present: Clear to Ascultation Cardiology: regular, normal heart rate Gastrointestinal: normal, normoactive bowel sounds Integumentary: no rash, other (AV graft in her left upper arm. Good bruit and thrill) Objective - Exam Narrative Exam: General appearance: well-developed, well-nourished, appears stated age EENT: PERRL, mucous membranes moist Neck: no JVD, no thyromegaly, no carotid bruit, supple, other (right IJ PermCath in place) Respiratory: Present: Clear to Ascultation Cardiology: regular, normal heart rate Gastrointestinal: normal, normoactive bowel sounds Integumentary: no rash, other (AV graft in her left upper arm. Good bruit and thrill) - Vital Signs Vital signs: Vital Signs - 12hr 04/26/17 04/26/17 04/26/17 07:21 08:26 09:04 Temperature 98.2 F Pulse Rate 103 H 98 H Respiratory 20 Rate Blood Pressure 150/71 Blood Pressure 150/71 [Left] O2 Sat by Pulse 95 97 Oximetry - Lab 04/25/17 07:22 04/25/17 07:22 Most recent lab results Calcium 7.5 mg/dL (8.4-10.2) L 04/25/17 07:22
[2017-04-26] MEDS ORDERED: VANCOMYCIN 1,500 MG in NACL 0.9% 500 ML 500 ML IV ONE (12:30)
[2017-04-26] MEDS ORDERED: FLAGYL PO SCH (14:00)
--- NOTE | 2017-04-26 14:27 | Consultation ---
History of Present Illness - Reason for Consult Consult date: 04/26/17 C diff colitis Requesting physician: AMANDA BABCOCK - History of Present Illness 66-year-old female with history of hypertension, diabetes mellitus, right internal jugular vein thrombosis, RUL mass of unknown etiology since February 2017 and end-stage renal disease on hemodialysis; admitted on 04/25/2017 due to worsening nausea, vomiting and abdominal pain. Patient reports diarrhea on/off for 3 weeks; however abdominal pain started a week ago. Abdominal pain is 10 out of 10, crampy, diffuse, associated with multiple vomiting. Of note, she was admitted on 03/29/2017 - 04/07/17 due to altered mental status and SOB. It was felt she had ?aspiration pneumonia and dante treated with IV ceftriaxone. Patient noted to have progressive leukocytosis, which was felt to be due to lung malignancy. C diff was sent and negative. She has history of right upper lobe lung mass for which tissue diagnosis has not yet been obtained as bronchoscopic lung biopsy was unsuccessful in February 2017. Therefore, recommendations were to have CT guided biopsy. This was completed but but sample from biopsy was too small. A repeat biopsy was planned during that same hospitalization but patient refused. The patient also saw thoracic surgery who feels that the patient is not a candidate for surgery. She has revision of AVF with insertion of AVG and perm cath on 01/16/17. In the emergency room, initial temperature was 97.5, heart rate 86, low pressure 169/65. Initial initial white blood cell count was 89,000. Hemoglobin 7.1. Creatinine 13. Lactic acid was normal. Current Antimicrobials: vanco IV Metronidazole Microbiology: Blood cultures: 04/25 ngtd Urine cultures: Respiratory cultures: Wound cultures: 04/25 Enterococcus Stool cultures: Cdiff 04/25 positive Past History Past Medical History: CAD, diabetes, DVT (right internal jugular), hypertension , hyperlipidemia, stroke, other (Lung mass) Past Surgical History: Other (av fistula) Social history: lives with family, full code. denies: smoking (Former smoker), alcohol abuse Medications and Allergies Allergies Allergy/AdvReac Type Severity Reaction Status Date / Time No Known Allergies Allergy Verified 03/29/17 21:42 Home Medications Medication Instructions Recorded Confirmed Last Taken Type Insulin Glargine,Hum.rec.anlog 60 units SQ QHS 01/13/17 04/25/17 03/28/17 History [Manuel Chavezostar] NovoLOG Flexpen 20 units SQ QAC 03/03/17 04/25/17 03/29/17 History ALBUTEROL NEB's [Proventil 0.083% 2.5 mg IH TIDRT PRN #30 nebu 03/21/1703/29/17 Rx NEBS] Apixaban [Eliquis] 5 mg PO BID #60 tablet 03/21/17 04/25/17 03/29/17 Rx Carvedilol [Coreg] 3.125 mg PO BID 30 Days 03/21/17 04/25/17 03/29/17 Rx Folic Acid/Vit B Comp W-C [Renal 1 cap PO QDAY #30 capsule 03/21/17 04/25/1710/10 Rx Caps] Acetaminophen [Acetaminophen TAB] 650 mg PO Q6HR PRN 03/29/17 04/25/17 Unknown History Acetaminophen [Acetaminophen TAB] 650 mg PO Q4H PRN #30 tablet 04/07/17 Unknown Rx Bisacodyl [Dulcolax suppos] 10 mg DC QDAY PRN #30 supp.rect 04/07/17 04/25/17 Unknown Rx Magnesium Hydroxide [Milk of 30 ml PO Q4H PRN #30 oral.liqd 04/07/17 04/25/17 Unknown Rx Magnesia] Active Meds: Active Medications Acetaminophen (Tylenol) 650 mg PO Q4H PRN PRN Reason: Pain MILD(1-3)/Fever >100.5/MIXON Albuterol (Proventil) 2.5 mg IH TIDRT PRN PRN Reason: Assess and treat protocol. Apixaban (Eliquis) 5 mg PO BID BERNARDA PRN Reason: Protocol Last Admin: 04/26/17 09:05 Dose: 5 mg Bisacodyl (Dulcolax) 10 mg DC QDAY PRN PRN Reason: Constipation unrelieved by MOM Carvedilol (Coreg) 3.125 mg PO BID BERNARDA Last Admin: 04/26/17 09:04 Dose: 3.125 mg Epoetin Carlos (Procrit) 10,000 unit IV JAYESH PRN PRN Reason: hemodialysis Last Admin: 04/25/17 17:30 Dose: 10,000 unit Sodium Chloride (Nacl 0.9%) 100 mls @ 999 mls/hr IV JAYESH PRN PRN Reason: Hypotension Insulin Aspart (Novolog) 8 units SUB-Q AC [facility] Last Admin: 04/26/17 09:01 Dose: 1 units Insulin Detemir (Levemir) 60 units SUB-Q QHS [facility] Last Admin: 04/25/17 22:29 Dose: 60 units Metronidazole (Flagyl) 500 mg PO Q8HR [facility] Morphine Sulfate (Morphine) 2 mg IV Q4H PRN PRN Reason: Pain, Moderate (4-6) Last Admin: 04/25/17 17:28 Dose: 2 mg Multivit/Ca Carb/B Cmplx/FA/Prenat (Renal Caps) 1 cap PO QDAY [facility] Last Admin: 04/26/17 09:05 Dose: 1 cap Ondansetron HCl (Zofran) 4 mg IV Q6H PRN PRN Reason: nausea or vomiting Last Admin: 04/25/17 17:31 Dose: 4 mg Vancomycin HCl (Vancomycin Pharmacy To Dose) 1 each IV PKCONSULT BERNARDA PRN Reason: Protocol Review of Systems All systems: negative (nausea, vomiting, abdominal pain) Physical Examination - Physical Exam Narrative exam: General appearance: Alert in NAD, weak anxious Eyes: anicteric sclerae, moist conjunctivae; no lid-lag; PERRLA HENT: Atraumatic; oropharynx clear with moist mucous membranes and no mucosal ulcerations/no oral thrush; normal hard and soft palate. Normal external ears. Neck: Trachea midline; supple, no thyromegaly or lymphadenopathy Lungs: tacho rhonchi CV: RRR, no murmurs Abdomen: Soft, TTP diffusely Extremities: +tacho leg edema Skin: Normal temperature, turgor and texture; no rash, ulcers or subcutaneous nodules Psych: Appropriate affect, alert and oriented to person, place and time. Neuro: alert and oriented x 3. Moving all extermities Lines: No CVL / PICC - Constitutional Vitals: Vital Signs Temp Pulse Resp BP Pulse Ox 98.2 F 98 H 20 150/71 97 04/26/17 08:26 04/26/17 09:04 04/26/17 08:26 04/26/17 09:04 04/26/17 08:26 Temperature -Last 24 Hours Temperature 98.2 F Temperature 97.2 F Results - Labs CBC & Chem 7: 04/25/17 07:22 04/25/17 07:22 Labs: Abnormal lab results 04/25/17 04/26/17 04/26/17 Range/Units 22:10 07:41 11:33 POC Glucose 196 H 225 H 195 H (70-105) Assessment and Plan Assessment: 1) Sepsis: Present on admission, manifested by tachycardia, and leukocytosis with leukemoid reaction. Etiology most likely due to C diff colitis. 2) Clostridium difficile colitis, severe: patient with diarrhea for 3 weeks. Exposed to broad spectrum antibiotics recently. 3) RUL lung mass: of unknown etiology, likely malignancy. Tissue diagnosis has not yet been obtained as bronchoscopic lung biopsy was unsuccessful in February 2017. CT guided biopsy was completed but sample from biopsy was too small. A repeat biopsy was planned during that last hospitalization but patient refused. The patient also saw thoracic surgery who feels that the patient is not a candidate for surgery. 4) ESRD on HD 5) Right IJ DVT 6) Wound with Enterococcus ? Plan: -obtain abdominal CT without contrast -follow-up blood cultures -stop IV vancomycin -start vancomycin 250 mg PO QID, if she is not tolerating PO, then will do vancomycin rectal edemas QID -start IV metronidazole -avoid broad spectrum antibiotics -address end-life issues ? hospice versus non-hospice -prognosis guarded Thank you Dr Babcock for your consultation, will follow up with you. Wilda Kay MD Infectious Diseases Specialist [facility] ([facility] M [phone] O [phone]
--- NOTE | 2017-04-26 15:52 | Cat Scan Report ---
FINAL REPORT PROCEDURE: CT ABDOMEN PELVIS WO CON TECHNIQUE: Computerized axial tomography of the abdomen and pelvis was performed without intravenous contrast. This study is performed without intravascular contrast material and its sensitivity for abdominal and pelvic pathology, including neoplasms, inflammation, abscess, free fluid, thrombosis, arterial dissection and infarction, is reduced compared with a contrast enhanced study. HISTORY: c.diff complication, abd pain COMPARISON: No prior studies are available for comparison. FINDINGS: Visualized lower thorax: There is a focal 1 centimeter airspace opacity in the left lower lobe, which may be related to a nodular focal infiltrate. Liver: Normal size and attenuation. Spleen: Normal size and attenuation. Gallbladder and biliary system: Gallbladder is present. Pancreas: There is a large masslike area with central low attenuation which abuts both the inferior border of the pancreatic head and the duodenum, etiology uncertain. This measures 8.9 centimeters AP x 7.7 centimeters transverse x 9.3 centimeters craniocaudal. Adrenals: There is bilateral adrenal hyperplasia. Kidneys: There is bilateral renal cortical atrophy. Punctate right renal calcifications may be vascular in origin or within the collecting system. Largest measures 3 millimeters. Within the left kidney there are several peripherally calcified low-density cystic areas, which measure up to 3.8 centimeters. No hydronephrosis bilaterally. GI tract: There is limited evaluation of bowel loops due to lack of oral contrast. The colon is nondistended, however findings are suspicious for diffuse colonic wall thickening. No significant inflammatory changes are seen. No obstruction. Appendix does not appear inflamed. As mentioned above there is a masslike area which abuts the duodenum and pancreas, possibly duodenal or pancreatic in origin. Lymph nodes and mesentery: Normal. Vasculature: Normal. Bladder: Normal. Reproductive organs: Normal. Peritoneum: No free fluid. Musculoskeletal structures: No significant abnormality. Other: None. IMPRESSION: Large masslike area in the right upper abdomen which may be a mass originating from the duodenum or pancreas. Findings are favored to be less likely related to an infectious process. Recommend further evaluation. Limited evaluation of bowel. However findings are suspicious for diffuse colonic wall thickening which can be seen with diffuse colitis. No significant inflammatory changes are seen. 1 centimeter airspace opacity in the left lower lobe may be related to focal infiltrate or nodule. Lungs are not fully imaged on this exam.
[2017-04-26] MEDS: VANCOMYCIN PO PO SCH (18:57)
[2017-04-26] MEDS: FLAGYL 500 MG/100 ML 500 MG/100 ML BAG IV SCH (19:30)
[2017-04-26] MEDS: LEVEMIR SUB-Q SCH (22:22)
[2017-04-27] MEDS: VANCOMYCIN PO PO SCH ×4 (00:08→18:00)
[2017-04-27] MEDS: FLAGYL 500 MG/100 ML 500 MG/100 ML BAG IV SCH ×3 (02:06→18:00)
[2017-04-27 06:11] LABS: Hematocrit 20.8 % (30.3-42.9); Hemoglobin 6.2 gm/dl (10.1-14.3); Mean Corpuscular HGB Conc 30 % (30-34); Mean Corpuscular Hemoglobin 30 pg (28-32); Mean Corpuscular Volume 100 fl (79-97); Platelet Count 328 K/mm3 (140-440); Red Blood Count 2.09 M/mm3 (3.65-5.03)
[2017-04-27 06:19] LABS: Red Cell Distribution Width 23.8 % (13.2-15.2)
[2017-04-27 06:20] LABS: White Blood Count 98.4 K/mm3 (4.5-11.0)
[2017-04-27 06:27] LABS: BUN/Creatinine Ratio 10.93; Calcium 7.3 mg/dL (8.4-10.2); Chloride 99.4 mmol/L (98-107)
[2017-04-27 06:40] LABS: Potassium 3.2 mmol/L (3.6-5.0)
[2017-04-27] MEDS: NOVOLOG SUB-Q SCH ×2 (07:45→18:00)
[2017-04-27] MEDS ORDERED: D50W (25GM) Vial IV ONE (07:50)
--- NOTE | 2017-04-27 07:50 | XRay Report ---
SUPINE KUB: History: Abdominal pain. The abdominal gas pattern is unremarkable. No masses or organomegaly is identified and there is no gross evidence of free air or fluid. No significant soft tissue calcifications are noted. The lung bases are not included in the [id number]. IMPRESSION: No acute abdominal process identified.
[2017-04-27] MEDS ORDERED: D50W (25GM) Syringe IV ONE ×2 (07:54→08:00)
[2017-04-27] MEDS ORDERED: WATER FOR INJ (PF) 10 ML ONE (08:29)
[2017-04-27] MEDS ORDERED: GLUCAGEN IM ONE (08:30)
[2017-04-27] MEDS: Renal Caps PO SCH (09:37)
[2017-04-27] MEDS: ELIQUIS PO SCH ×2 (09:37→23:09)
--- NOTE | 2017-04-27 09:46 | Progress Note ---
Assessment and Plan Assessment: 1) Sepsis: worsening leukocytosis with leukemoid reaction. Etiology most likely due to C diff colitis +/- malignancy. 2) Clostridium difficile colitis, severe: patient with diarrhea for 3 weeks. Exposed to broad spectrum antibiotics recently. -CT abd showed diffuse colon wall thickening 3) RUL lung mass: of unknown etiology, likely malignancy. Tissue diagnosis has not yet been obtained as bronchoscopic lung biopsy was unsuccessful in February 2017. CT guided biopsy was completed but sample from biopsy was too small. A repeat biopsy was planned during that last hospitalization but patient refused. The patient also saw thoracic surgery who feels that the patient is not a candidate for surgery. 4) ESRD on HD 5) Right IJ DVT 6) Sacral Wound with Enterococcus ? 7) RUQ large mass ? originating from duodenum or pancreas? unclear etiology Malignancy -CT abd showed 8.9x7.7x9.3 cm mass Plan: -In view of abdominal CT findings, consider surgical consultation/hem/onc consultation to determine need for biopsy if patient is not considering hospice -follow-up blood cultures -continue vancomycin 250 mg PO QID and IV metronidazole -needs PICC line due to poor access -avoid broad spectrum antibiotics -address end-life issues ? hospice versus non-hospice -prognosis guarded -wound care to address sacral decubitus / holding off broad spectrum antibiotics due to severe C diff Thank you Dr Nguyễn for your consultation, will follow up with you. Wilda Kay MD Infectious Diseases Specialist [facility] M [phone] O [phone] Subjective Date of service: 04/27/17 Principal diagnosis: leukocytosis Interval history: Remains feeling sick, c/o severe abdominal pain. No fever. Current Antimicrobials: vanco IV Metronidazole Microbiology: Blood cultures: 04/25 ngtd Urine cultures: Respiratory cultures: Wound cultures: 04/25 Enterococcus Stool cultures: Cdiff 04/25 positive Objective - Exam Narrative Exam: General appearance: alert ill-appearing Eyes: anicteric sclerae, moist conjunctivae; no lid-lag; PERRLA HENT: Atraumatic; oropharynx clear with moist mucous membranes and no mucosal ulcerations/no oral thrush; normal hard and soft palate. Normal external ears. Neck: Trachea midline; supple, no thyromegaly or lymphadenopathy Lungs: tacho rhonchi CV: RRR, no murmurs Abdomen: Soft, TTP diffusely Extremities: +tacho leg edema and arm edema Skin: Normal temperature, turgor and texture; no rash, ulcers or subcutaneous nodules Psych: Appropriate affect, alert and oriented to person, place and time. Neuro: alert and oriented x 3. Moving all extermities Lines: No CVL / PICC - Constitutional Vitals: Vital Signs Temp Pulse Resp BP Pulse Ox 98.6 F 104 H 20 126/68 95 04/26/17 15:00 04/26/17 22:21 04/26/17 15:00 04/26/17 22:21 04/27/17 07:46 Temperature -Last 24 Hours Temperature 98.6 F - Labs CBC & Chem 7: 04/27/17 05:53 04/27/17 05:53 Labs: Abnormal lab results 04/26/17 04/26/17 04/26/17 Range/Units 11:33 16:33 21:42 WBC (4.5-11.0) K/mm3 RBC (3.65-5.03) M/mm3 Hgb (10.1-14.3) gm/dl Hct (30.3-42.9) % MCV (79-97) fl RDW (13.2-15.2) % Potassium (3.6-5.0) mmol/L BUN (7-17) mg/dL Creatinine (0.7-1.2) mg/dL Glucose (65-100) mg/dL POC Glucose 195 H 245 H 254 H (70-105) Calcium (8.4-10.2) mg/dL C-Reactive Protein (0.00-1.30) mg/dL 04/27/17 04/27/17 04/27/17 Range/Units 05:53 05:53 07:40 WBC 98.4 H* (4.5-11.0) K/mm3 RBC 2.09 L (3.65-5.03) M/mm3 Hgb 6.2 L (10.1-14.3) gm/dl Hct 20.8 L (30.3-42.9) % MCV 100 H (79-97) fl RDW 23.8 H (13.2-15.2) % Potassium 3.2 L D (3.6-5.0) mmol/L BUN 82 H (7-17) mg/dL Creatinine 7.5 H (0.7-1.2) mg/dL Glucose 55 L (65-100) mg/dL POC Glucose (70-105) Calcium 7.3 L (8.4-10.2) mg/dL C-Reactive Protein 19.80 H (0.00-1.30) mg/dL 04/27/17 04/27/17 04/27/17 Range/Units 07:51 08:11 09:34 WBC (4.5-11.0) K/mm3 RBC (3.65-5.03) M/mm3 Hgb (10.1-14.3) gm/dl Hct (30.3-42.9) % MCV (79-97) fl RDW (13.2-15.2) % Potassium (3.6-5.0) mmol/L BUN (7-17) mg/dL Creatinine (0.7-1.2) mg/dL Glucose (65-100) mg/dL POC Glucose < 40 L < 40 L 116 H (70-105) Calcium (8.4-10.2) mg/dL C-Reactive Protein (0.00-1.30) mg/dL
[2017-04-27] MEDS: COREG PO SCH (10:00)
--- NOTE | 2017-04-27 10:00 | Progress Note ---
Assessment and Plan Impression: * ESRD on HD MWF * AMS * Right upper lobe lung mass * RIJ acute DVT * Leukocytosis, persistent * Type II DM * Anemia secondary to ESRD * Secondary hyperparathyroidism * Hypokalemia Plan: * Continue hemodialysis MWF * UF as tolerated * ct noted, yes more evidence of mass and malignancy, agree with heme/onc pt is hospice appropriate * heme notes reviewed, agree with hospice ashu if patient continues to miss hd, she missed 2 weeks of dialysis * Anticoagulation per primary team * prbcs with hd today * reduce eliquis to 2.5 bid in HD patient * Epogen for goal Hb 10-12 * Renal diet/fluid restriction * Adjust medication doses for renal function * poor overall prognosis * palliative care consult needed Subjective Date of service: 04/27/17 Principal diagnosis: leukocytosis Interval history: General appearance: well-developed, well-nourished, appears stated age EENT: PERRL, mucous membranes moist Neck: no JVD, no thyromegaly, no carotid bruit, supple, other (right IJ PermCath in place) Respiratory: Present: Clear to Ascultation Cardiology: regular, normal heart rate Gastrointestinal: normal, normoactive bowel sounds Integumentary: no rash, other (AV graft in her left upper arm. Good bruit and thrill) Objective - Exam Narrative Exam: General appearance: well-developed, well-nourished, appears stated age EENT: PERRL, mucous membranes moist Neck: no JVD, no thyromegaly, no carotid bruit, supple, other (right IJ PermCath in place) Respiratory: Present: Clear to Ascultation Cardiology: regular, normal heart rate Gastrointestinal: normal, normoactive bowel sounds Integumentary: no rash, other (AV graft in her left upper arm. Good bruit and thrill) - Vital Signs Vital signs: Vital Signs - 12hr 04/26/17 04/26/17 04/27/17 22:00 22:21 07:46 Pulse Rate 104 H 104 H Pulse Rate [ 104 H Right From Monitor] Blood Pressure 126/68 O2 Sat by Pulse 95 Oximetry - Lab 04/27/17 05:53 04/27/17 05:53 Most recent lab results Calcium 7.3 mg/dL (8.4-10.2) L 04/27/17 05:53
[2017-04-27] MEDS ORDERED: HEPARIN IV PRN (10:54)
[2017-04-27] MEDS: MORPHINE IV PRN (11:42)
[2017-04-27] MEDS: PROCRIT IV PRN (11:43)
[2017-04-27] MEDS: ZOFRAN IV PRN (11:44)
--- NOTE | 2017-04-27 15:54 | Event Note ---
Date: 04/27/17 Patient was brought to the angiographic suite and consent was signed for Central venous access. The patient then refused to continue the procedure stating that she simply wanted to go back to her room. She did not want to be stuck anymore. I explained to the patient that she would not be able to get treatment without venous access and IVs were unable to be placed. She stated her understanding of the consequences of her decision and continued to refuse to continue with the procedure. The procedure was therefore terminated. The patient does have a right IJ Vas-Cath which in an emergent situation may be utilized for Central venous access.
--- NOTE | 2017-04-27 15:58 | Progress Note ---
Assessment and Plan Assessment and plan: Mrs. Tamez is a 66-year-old woman with past medical history for Right IJ DVT on eliquis hypertension, diabetes mellitus with neuropathy, foot drop, right internal jugular vein thrombosis, end-stage renal disease on hemodialysis mwf, and right upper lobe lung mass for which tissue diagnosis has not yet been obtained as bronchoscopic lung biopsy was unsuccessful sometime in February 2017. Therefore, recommendations were to have CT guided biopsy. This was completed but but sample from biopsy was too small. A repeat biopsy was planned but patient refused. The patient also saw thoracic surgery who felt that the patient is not a candidate for surgery; therefore, patient was discharged home on 04/07/17. She has missed hemodialysis sessions and now presents with volume overload, shortness of breath with nausea. -Acute hypoxic respiratory failure due to volume overload: Treat with oxygen -End Stage renal disease, noncompliant with hemodialysis related to volume overload: Needing hemodialysis, consulted associate curator -Severe leukocytosis, suspicious for malignancy from lung mass vs infection on empiric iv vanc and zosyn (not given because she lost iv access)C. diffe negative==>Sepsis from bacterial AGE with c. diffe, poa: start flagyl, pt has not iv line except vas cath for hemodialysis, -Right IJ DVT on Eliquis -DVT prophylaxis on Eliquis. New issue, C. diffe positive and no peripheral IV line. Consult iv team, isolation precautions Stop iv zosyn, continue iv vancomycin due to Enterococcus from wound, hypoglycemic===>gave glucagon im and blood glucose stabilized. Hold long acting insulin IV team unable to establish line, consulted IR to place peripheral line History Interval history: Patient was seen and examined. Follow-up on current diagnosis/ams. Overnight eventful. lost iv access and blood glucose 27. Patient denies any chest pain, nausea/vomiting or severe headaches. Imaging, nursing note, chart, labs and old chart reviewed. Discussed with patient. +SOB and volume overload. Hospitalist Physical - Physical exam Narrative exam: GEN: WDWN, NAD, AWAKE, ALERT, ORIENTATED x 2 with periods of confusion HEENT: NCAT, EOMI, PERRL, OP Clear NECK: supple, no adenopathy, no thyromegaly, no JVD CVS/HEART: reg tachy NORMAL S1S2, NO JVD, pulses present bilaterally CHEST/LUNGS: bilateral crackles, Symmetrical chest expansion, reduce air entry bilaterally GI/Abdomen: soft, NTND, dependent flank edema, good bowel sounds, no guarding or rebound /Bladder: no suprapubic tenderness, no CVA or paraspinal tenderness EXT/Skin: bilateral pitting significant leg edema MSK: FROM x 4 Neuro: CN 2-12 grossly intact, no new focal deficits Psych: upset, poor insight - Constitutional Vitals: Temp Pulse Resp BP Pulse Ox 98.6 F 107 H 18 124/90 95 04/27/17 14:52 04/27/17 14:52 04/27/17 14:52 04/27/17 14:52 04/27/17 07:46 Results - Labs CBC & Chem 7: 04/27/17 05:53 04/27/17 05:53 Labs: Laboratory Last Values WBC 98.4 K/mm3 (4.5-11.0) H* 04/27/17 05:53 RBC 2.09 M/mm3 (3.65-5.03) L 04/27/17 05:53 Hgb 6.2 gm/dl (10.1-14.3) L 04/27/17 05:53 Hct 20.8 % (30.3-42.9) L 04/27/17 05:53 MCV 100 fl (79-97) H 04/27/17 05:53 MCH 30 pg (28-32) 04/27/17 05:53 MCHC 30 % (30-34) 04/27/17 05:53 RDW 23.8 % (13.2-15.2) H 04/27/17 05:53 Plt Count 328 K/mm3 (140-440) 04/27/17 05:53 Add Manual Diff Complete 04/25/17 07:22 Total Counted 200 04/25/17 07:22 Seg Neutrophils % Special Warfare Operator 04/25/17 07:22 Seg Neuts % (Manual) 94.0 % (40.0-70.0) H 04/25/17 07:22 Band Neutrophils % 3.5 % 04/25/17 07:22 Lymphocytes % (Manual) 1.5 % (13.4-35.0) L 04/25/17 07:22 Reactive Lymphs % (Man) 0 % 04/25/17 07:22 Monocytes % (Manual) 1.0 % (0.0-7.3) 04/25/17 07:22 Eosinophils % (Manual) 0 % (0.0-4.3) 04/25/17 07:22 Basophils % (Manual) 0 % (0.0-1.8) 04/25/17 07:22 Metamyelocytes % 0 % 04/25/17 07:22 Myelocytes % 0 % 04/25/17 07:22 Promyelocytes % 0 % 04/25/17 07:22 Blast Cells % 0 % 04/25/17 07:22 Nucleated RBC % Not Reportable 04/25/17 07:22 Seg Neutrophils # Man 86.6 K/mm3 (1.8-7.7) H 04/25/17 07:22 Band Neutrophils # 3.2 K/mm3 04/25/17 07:22 Lymphocytes # (Manual) 1.4 K/mm3 (1.2-5.4) 04/25/17 07:22 Abs React Lymphs (Man) 0.0 K/mm3 04/25/17 07:22 Monocytes # (Manual) 0.9 K/mm3 (0.0-0.8) H 04/25/17 07:22 Eosinophils # (Manual) 0.0 K/mm3 (0.0-0.4) 04/25/17 07:22 Basophils # (Manual) 0.0 K/mm3 (0.0-0.1) 04/25/17 07:22 Metamyelocytes # 0.0 K/mm3 04/25/17 07:22 Myelocytes # 0.0 K/mm3 04/25/17 07:22 Promyelocytes # 0.0 K/mm3 04/25/17 07:22 Blast Cells # 0.0 K/mm3 04/25/17 07:22 Pathologist Review 04/24/17 19:29 WBC Morphology Not Reportable 04/25/17 07:22 Hypersegmented Neuts Not Reportable 04/25/17 07:22 Hyposegmented Neuts Not Reportable 04/25/17 07:22 Hypogranular Neuts Not Reportable 04/25/17 07:22 Smudge Cells Not Reportable 04/25/17 07:22 Toxic Granulation Not Reportable 04/25/17 07:22 Toxic Vacuolation Not Reportable 04/25/17 07:22 Dohle Bodies Few 04/25/17 07:22 Pelger-Huet Anomaly Not Reportable 04/25/17 07:22 Jeremiah Rods Not Reportable 04/25/17 07:22 Platelet Estimate Appears normal 04/25/17 07:22 Clumped Platelets Not Reportable 04/25/17 07:22 Plt Clumps, EDTA Not Reportable 04/25/17 07:22 Large Platelets Not Reportable 04/25/17 07:22 Giant Platelets Not Reportable 04/25/17 07:22 Platelet Satelliting Not Reportable 04/25/17 07:22 Plt Morphology Comment Not Reportable 04/25/17 07:22 RBC Morphology Not Reportable 04/25/17 07:22 Dimorphic RBCs Not Reportable 04/25/17 07:22 Polychromasia Few 04/25/17 07:22 Hypochromasia Not Reportable 04/25/17 07:22 Poikilocytosis 1+ 04/25/17 07:22 Anisocytosis 2+ 04/25/17 07:22 Microcytosis Not Reportable 04/25/17 07:22 Macrocytosis Not Reportable 04/25/17 07:22 Spherocytes Not Reportable 04/25/17 07:22 Pappenheimer Bodies Not Reportable 04/25/17 07:22 Sickle Cells Not Reportable 04/25/17 07:22 Target Cells Not Reportable 04/25/17 07:22 Tear Drop Cells Not Reportable 04/25/17 07:22 Ovalocytes Not Reportable 04/25/17 07:22 Helmet Cells Not Reportable 04/25/17 07:22 [place] Bodies Not Reportable 04/25/17 07:22 [place] Rings Not Reportable 04/25/17 07:22 [place] Cells Not Reportable 04/25/17 07:22 Bite Cells Not Reportable 04/25/17 07:22 Crenated Cell Not Reportable 04/25/17 07:22 Elliptocytes Not Reportable 04/25/17 07:22 Acanthocytes (Spur) Not Reportable 04/25/17 07:22 Rouleaux Not Reportable 04/25/17 07:22 Hemoglobin C Crystals Not Reportable 04/25/17 07:22 Schistocytes Not Reportable 04/25/17 07:22 Malaria parasites Not Reportable 04/25/17 07:22 [place] Bodies Not Reportable 04/25/17 07:22 Hem Pathologist Commnt No 04/25/17 07:22 PT 18.0 Sec. (12.2-14.9) H 04/24/17 Unknown INR 1.41 (0.87-1.13) H 04/24/17 Unknown APTT 34.6 Sec. (24.2-36.6) 04/24/17 Unknown Sodium 144 mmol/L (137-145) 04/27/17 05:53 Potassium 3.2 mmol/L (3.6-5.0) L D 04/27/17 05:53 Chloride 99.4 mmol/L (98-107) 04/27/17 05:53 Carbon Dioxide 22 mmol/L (22-30) D 04/27/17 05:53 Anion Gap 26 mmol/L 04/27/17 05:53 BUN 82 mg/dL (7-17) H 04/27/17 05:53 Creatinine 7.5 mg/dL (0.7-1.2) H 04/27/17 05:53 Estimated GFR 7 ml/min 04/27/17 05:53 BUN/Creatinine Ratio 10.93 % 04/27/17 05:53 Glucose 55 mg/dL (65-100) L 04/27/17 05:53 POC Glucose 171 (70-105) H 04/27/17 11:35 Lactic Acid 1.10 mmol/L (0.7-2.0) 04/25/17 08:37 Calcium 7.3 mg/dL (8.4-10.2) L 04/27/17 05:53 Total Bilirubin 0.30 mg/dL (0.1-1.2) 04/24/17 19:29 AST 11 units/L (5-40) 04/24/17 19:29 ALT 8 units/L (7-56) 04/24/17 19:29 Alkaline Phosphatase 266 units/L (35-129) H 04/24/17 19:29 C-Reactive Protein 19.80 mg/dL (0.00-1.30) H 04/27/17 07:40 Total Protein 5.6 g/dL (6.3-8.2) L 04/24/17 19:29 Albumin 2.2 g/dL (3.9-5) L 04/24/17 19:29 Albumin/Globulin Ratio 0.6 % 04/24/17 19:29 Lipase 57 units/L (13-60) 04/24/17 19:29 Random Vancomycin 2.3 ug/mL (0-40.0) 04/26/17 04:16 Blood Type O POSITIVE 04/27/17 11:20 Antibody Screen Negative 04/27/17 11:20 Crossmatch See Detail 04/27/17 11:20
[2017-04-27] MEDS ORDERED: D50W (25GM) Syringe IV PRN (16:04)
[2017-04-27] MEDS: TYLENOL PO PRN (20:08)
[2017-04-27 22:03] LABS: Hemoglobin 9.3 gm/dl (10.1-14.3)
[2017-04-28] MEDS: TYLENOL PO PRN ×4 (00:30→23:16)
[2017-04-28] MEDS: NOVOLOG SUB-Q SCH ×5 (05:17→22:29)
[2017-04-28] MEDS: VANCOMYCIN PO PO SCH ×4 (05:31→18:24)
[2017-04-28 05:39] LABS: Hematocrit 27.6 % (30.3-42.9); Mean Corpuscular HGB Conc 32 % (30-34); Mean Corpuscular Hemoglobin 31 pg (28-32); Mean Corpuscular Volume 95 fl (79-97); Platelet Count 307 K/mm3 (140-440); Red Blood Count 2.92 M/mm3 (3.65-5.03)
[2017-04-28] MEDS: COREG PO SCH ×3 (05:39→22:28)
[2017-04-28] MEDS: FLAGYL 500 MG/100 ML 500 MG/100 ML BAG IV SCH ×3 (05:41→17:11)
[2017-04-28 05:57] LABS: Red Cell Distribution Width 21.7 % (13.2-15.2)
[2017-04-28 05:58] LABS: White Blood Count 86.2 K/mm3 (4.5-11.0)
[2017-04-28 06:00] LABS: Calcium 7.4 mg/dL (8.4-10.2); Chloride 98.6 mmol/L (98-107); Potassium 3.2 mmol/L (3.6-5.0)
[2017-04-28] MEDS: Renal Caps PO SCH (09:40)
[2017-04-28] MEDS: ELIQUIS PO SCH ×2 (09:40→22:29)
--- NOTE | 2017-04-28 10:01 | Progress Note ---
Assessment and Plan Impression: * ESRD on HD MWF * AMS * Right upper lobe lung mass * RIJ acute DVT * Leukocytosis, persistent * Type II DM * Anemia secondary to ESRD * Secondary hyperparathyroidism * Hypokalemia Plan: * Continue hemodialysis MWF * UF as tolerated * ct noted, yes more evidence of mass and malignancy, agree with heme/onc pt is hospice appropriate * heme notes reviewed, agree with hospice ashu if patient continues to miss hd, she missed 2 weeks of dialysis * Anticoagulation per primary team * refused iv access placement, needs palliative care consultation, consider ethics consult * prbcs with hd today * reduce eliquis to 2.5 bid in HD patient * Epogen for goal Hb 10-12 * Renal diet/fluid restriction * Adjust medication doses for renal function * poor overall prognosis * palliative care consult needed Subjective Date of service: 04/28/17 Principal diagnosis: leukocytosis Interval history: General appearance: well-developed, well-nourished, appears stated age EENT: PERRL, mucous membranes moist Neck: no JVD, no thyromegaly, no carotid bruit, supple, other (right IJ PermCath in place) Respiratory: Present: Clear to Ascultation Cardiology: regular, normal heart rate Gastrointestinal: normal, normoactive bowel sounds Integumentary: no rash, other (AV graft in her left upper arm. Good bruit and thrill) Objective - Exam Narrative Exam: General appearance: well-developed, well-nourished, appears stated age EENT: PERRL, mucous membranes moist Neck: no JVD, no thyromegaly, no carotid bruit, supple, other (right IJ PermCath in place) Respiratory: Present: Clear to Ascultation Cardiology: regular, normal heart rate Gastrointestinal: normal, normoactive bowel sounds Integumentary: no rash, other (AV graft in her left upper arm. Good bruit and thrill) - Vital Signs Vital signs: Vital Signs - 12hr 04/28/17 04/28/17 05:39 08:00 Temperature 97.9 F Pulse Rate 78 115 H Respiratory 20 Rate Blood Pressure 120/78 Blood Pressure 132/50 [Left] O2 Sat by Pulse 98 Oximetry - Lab 04/28/17 05:16 04/28/17 05:16 Most recent lab results Calcium 7.4 mg/dL (8.4-10.2) L 04/28/17 05:16
--- NOTE | 2017-04-28 10:02 | Progress Note ---
Assessment and Plan Assessment: 1) Sepsis: slightly better leukocytosis with leukemoid reaction. Etiology most likely due to C diff colitis +/- malignancy. -CRP=19 -WBC 98 --> 86K 2) Clostridium difficile colitis, severe: patient with diarrhea for 3 weeks. Exposed to broad spectrum antibiotics recently. -CT abd showed diffuse colon wall thickening 3) RUL lung mass: of unknown etiology, likely malignancy. Tissue diagnosis has not yet been obtained as bronchoscopic lung biopsy was unsuccessful in February 2017. CT guided biopsy was completed but sample from biopsy was too small. A repeat biopsy was planned during that last hospitalization but patient refused. The patient also saw thoracic surgery who feels that the patient is not a candidate for surgery. 4) ESRD on HD 5) Right IJ DVT 6) Sacral Wound stage II - with Enterococcus ? colonizer 7) RUQ large mass ? originating from duodenum or pancreas? unclear etiology Malignancy -CT abd showed 8.9x7.7x9.3 cm mass Plan: -In view of abdominal CT findings, consider surgical consultation/hem/onc consultation to determine need for biopsy if patient is not considering hospice -continue vancomycin 250 mg PO QID and IV metronidazole -avoid broad spectrum antibiotics -address end-life issues ? hospice versus non-hospice -prognosis guarded Thank you Dr Wilson for your consultation, will follow up with you. Wilda Kay MD Infectious Diseases Specialist [facility] M [phone] O [phone] Subjective Date of service: 04/28/17 Principal diagnosis: leukocytosis Interval history: Remains feeling sick, still c/o abdominal pain. No fever. Current Antimicrobials: vanco IV 04/26 Metronidazole 04/26 Microbiology: Blood cultures: 04/25 ngtd Urine cultures: Respiratory cultures: Wound sacral cultures: 04/25 Enterococcus Stool cultures: Cdiff 04/25 positive Objective - Exam Narrative Exam: General appearance: alert ill-appearing Eyes: anicteric sclerae, moist conjunctivae; no lid-lag; PERRLA HENT: Atraumatic; oropharynx clear with moist mucous membranes and no mucosal ulcerations/no oral thrush; normal hard and soft palate. Normal external ears. Neck: Trachea midline; supple, no thyromegaly or lymphadenopathy Lungs: tacho rhonchi CV: RRR, no murmurs Abdomen: Soft, TTP diffusely Extremities: +tacho leg edema and arm edema Skin: sacral stage I-II no purulence Psych: Appropriate affect, alert and oriented to person, place and time. Neuro: alert and oriented x 3. Moving all extermities Lines: No CVL / PICC - Constitutional Vitals: Vital Signs Temp Pulse Resp BP Pulse Ox 97.9 F 115 H 20 132/50 98 04/28/17 08:00 04/28/17 08:00 04/28/17 08:00 04/28/17 08:00 04/28/17 08:00 Temperature -Last 24 Hours Temperature 97.9 F Temperature 98 F Temperature 98.5 F Temperature 98.6 F Temperature 98.6 F Temperature 98.6 F Temperature 98.6 F Temperature 98.6 F Temperature 98.6 F Temperature 98.6 F Temperature 98.6 F Temperature 98.6 F Temperature 98.6 F Temperature 98.2 F - Labs CBC & Chem 7: 04/28/17 05:16 04/28/17 05:16 Labs: Abnormal lab results 04/27/17 04/27/17 04/27/17 Range/Units 11:20 11:35 17:05 WBC (4.5-11.0) K/mm3 RBC (3.65-5.03) M/mm3 Hgb (10.1-14.3) gm/dl Hct (30.3-42.9) % RDW (13.2-15.2) % Potassium (3.6-5.0) mmol/L BUN (7-17) mg/dL Creatinine (0.7-1.2) mg/dL Glucose (65-100) mg/dL POC Glucose 171 H 131 H (70-105) Calcium (8.4-10.2) mg/dL Crossmatch See Detail 04/27/17 04/27/17 04/28/17 Range/Units 21:09 22:41 05:16 WBC 86.2 H* (4.5-11.0) K/mm3 RBC 2.92 L (3.65-5.03) M/mm3 Hgb 9.3 L D 9.0 L (10.1-14.3) gm/dl Hct 29.0 L D 27.6 L (30.3-42.9) % RDW 21.7 H (13.2-15.2) % Potassium (3.6-5.0) mmol/L BUN (7-17) mg/dL Creatinine (0.7-1.2) mg/dL Glucose (65-100) mg/dL POC Glucose 165 H (70-105) Calcium (8.4-10.2) mg/dL Crossmatch 04/28/17 04/28/17 Range/Units 05:16 07:11 WBC (4.5-11.0) K/mm3 RBC (3.65-5.03) M/mm3 Hgb (10.1-14.3) gm/dl Hct (30.3-42.9) % RDW (13.2-15.2) % Potassium 3.2 L (3.6-5.0) mmol/L BUN 35 H (7-17) mg/dL Creatinine 4.4 H (0.7-1.2) mg/dL Glucose 174 H (65-100) mg/dL POC Glucose 223 H (70-105) Calcium 7.4 L (8.4-10.2) mg/dL Crossmatch
[2017-04-28] MEDS ORDERED: HYDROMET PO PRN (12:00)
--- NOTE | 2017-04-28 13:17 | Hem/Onc Progress Note ---
Assessment and Plan - Patient Problems (1) End stage renal disease on dialysis Current Visit: Yes Status: Acute Plan to address problem: Her prognosis is poor. She does not want another discussion on lung biopsy. She understands riske. Will sign off. please call with questions. Subjective Date of service: 04/28/17 Interval history: She is very weak and tired. Bed bound. No complains. Objective - Constitutional Vitals: Last Vital Signs Temp 97.9 F 04/28/17 08:00 Pulse 125 H 04/28/17 10:00 Resp 20 04/28/17 08:00 BP 132/50 04/28/17 08:00 Pulse Ox 98 04/28/17 08:00 - EENT ENT: hearing intact Lymph node exam: negative cervical - Neck Neck: supple - Respiratory Respiratory: bilateral: CTA - Cardiovascular Rhythm: regular - Labs Lab Results: Laboratory Results - last 24 hr 04/27/17 04/27/17 04/27/17 11:20 17:05 21:09 WBC RBC Hgb 9.3 L D Hct 29.0 L D MCV MCH MCHC RDW Plt Count Sodium Potassium Chloride Carbon Dioxide Anion Gap BUN Creatinine Estimated GFR BUN/Creatinine Ratio Glucose POC Glucose 131 H Calcium Blood Type O POSITIVE Antibody Screen Negative Crossmatch See Detail 04/27/17 04/28/17 04/28/17 22:41 05:16 05:16 WBC 86.2 H* RBC 2.92 L Hgb 9.0 L Hct 27.6 L MCV 95 MCH 31 MCHC 32 RDW 21.7 H Plt Count 307 Sodium 142 Potassium 3.2 L Chloride 98.6 Carbon Dioxide 24 Anion Gap 23 BUN 35 H Creatinine 4.4 H Estimated GFR 12 BUN/Creatinine Ratio 8 Glucose 174 H POC Glucose 165 H Calcium 7.4 L Blood Type Antibody Screen Crossmatch 04/28/17 04/28/17 07:11 11:24 WBC RBC Hgb Hct MCV MCH MCHC RDW Plt Count Sodium Potassium Chloride Carbon Dioxide Anion Gap BUN Creatinine Estimated GFR BUN/Creatinine Ratio Glucose POC Glucose 223 H 265 H Calcium Blood Type Antibody Screen Crossmatch
--- NOTE | 2017-04-28 15:07 | Progress Note ---
Assessment and Plan Assessment and plan: Mrs. Tamez is a 66-year-old woman with past medical history for Right IJ DVT on eliquis hypertension, diabetes mellitus with neuropathy, foot drop, right internal jugular vein thrombosis, end-stage renal disease on hemodialysis mwf, and right upper lobe lung mass for which tissue diagnosis has not yet been obtained as bronchoscopic lung biopsy was unsuccessful sometime in February 2017. Therefore, recommendations were to have CT guided biopsy. This was completed but but sample from biopsy was too small. A repeat biopsy was planned but patient refused. The patient also saw thoracic surgery who felt that the patient is not a candidate for surgery; therefore, patient was discharged home on 04/07/17. She has missed hemodialysis sessions and now presents with volume overload, shortness of breath with nausea. -Acute hypoxic respiratory failure due to volume overload: Treat with oxygen -Intractable cough: Started on Hycodan -End Stage renal disease, noncompliant with hemodialysis related to volume overload: Needing hemodialysis, elastic attacher zigzag input noted. Patient multiple missed dialysis secondary to illness went home. -Severe CDiff collitis,doubt if this explains the >80k leukocytosis, continue, management with po vancomycin and IV metronidazole. patient recently was exposed to Broad specturm abx. -Severe leukocytosis, suspicious for malignancy from lung mass vs infection -Sepsis from bacterial AGE with c. diffe, poa: start flagyl, pt has not iv line except vas cath for hemodialysis, -Right IJ DVT on Eliquis, attempt to reestablish access refused by the patient. Right IJ Vas-Cath will remain in place for emergency situations this has been discussed with the patient and also with the son. -RUL lung mass: of unknown etiology, likely malignancy. Tissue diagnosis has not yet been obtained as bronchoscopic lung biopsy was unsuccessful in February 2017. CT guided biopsy was completed but sample from biopsy was too small. A repeat biopsy was planned during that last hospitalization but patient refused. The patient also saw thoracic surgery who feels that the patient is not a candidate for surgery. PATIENT REFUSES REPEAT BIOPSY -Sacral Wound stage II - with Enterococcus ? colonizer, WOUND CARE CONSULT. POA -RUQ large mass ? originating from duodenum or pancreas? unclear etiology Malignancy -CT abd showed 8.9x7.7x9.3 cm mass- pt and son advised of finding. -DVT prophylaxis on Eliquis. -Hypoglycemic===>gave glucagon im and blood glucose stabilized. Hold long acting insulin-IV team unable to establish line, consulted IR to place peripheral line Discussed in detail with son Jayson Tamez [phone], Hospice recommendation also discussed he will speak with the Hospice team, Case management advised to set up Cancer Spec, signed off. No further treatment offered. Hospice recommended. History Interval history: Patient seen and examined today is obese with intractable cough. Nursing staff reports intermittent confusion. She denies any abdominal pain at this time. Denies any nausea vomiting or diarrhea. Hospitalist Physical - Physical exam Narrative exam: VITAL SIGNS: Reviewed. GENERAL: The patient appeared CRITICAL ILL. INTERACTABLE COUGHING SPELL, Vital signs as documented. HEAD: No signs of head trauma. EYES: Pupils are equal. Extraocular motions intact. EARS: Hearing grossly intact. MOUTH: Oropharynx is normal. NECK: No adenopathy, no JVD. CHEST: Chest with clear breath sounds bilaterally. No wheezes, rales, or rhonchi. CARDIAC: Regular rate and rhythm. S1 and S2, without murmurs, gallops, or rubs. VASCULAR: No Edema. Peripheral pulses normal and equal in all extremities. ABDOMEN: Soft, without detectable tenderness. No sign of distention. No rebound or guarding, and no masses palpated. Bowel Sounds normal. MUSCULOSKELETAL: Good range of motion of all major joints. Extremities without clubbing, cyanosis or edema. NEUROLOGIC EXAM: Alert and oriented x 3. No focal sensory or strength deficits. Lethergic, Speech normal. Follows commands. PSYCHIATRIC: Mood normal. SKIN: saral pressure ulcer - Constitutional Vitals: Temp Pulse Resp BP Pulse Ox 98.7 F 115 H 20 150/37 98 04/28/17 13:50 04/28/17 13:50 04/28/17 08:00 04/28/17 13:50 04/28/17 08:00 Results - Labs CBC & Chem 7: 04/28/17 05:16 04/28/17 05:16 Labs: Laboratory Last Values WBC 86.2 K/mm3 (4.5-11.0) H* 04/28/17 05:16 RBC 2.92 M/mm3 (3.65-5.03) L 04/28/17 05:16 Hgb 9.0 gm/dl (10.1-14.3) L 04/28/17 05:16 Hct 27.6 % (30.3-42.9) L 04/28/17 05:16 MCV 95 fl (79-97) 04/28/17 05:16 MCH 31 pg (28-32) 04/28/17 05:16 MCHC 32 % (30-34) 04/28/17 05:16 RDW 21.7 % (13.2-15.2) H 04/28/17 05:16 Plt Count 307 K/mm3 (140-440) 04/28/17 05:16 Add Manual Diff Complete 04/25/17 07:22 Total Counted 200 04/25/17 07:22 Seg Neutrophils % Cigarette Stamper 04/25/17 07:22 Seg Neuts % (Manual) 94.0 % (40.0-70.0) H 04/25/17 07:22 Band Neutrophils % 3.5 % 04/25/17 07:22 Lymphocytes % (Manual) 1.5 % (13.4-35.0) L 04/25/17 07:22 Reactive Lymphs % (Man) 0 % 04/25/17 07:22 Monocytes % (Manual) 1.0 % (0.0-7.3) 04/25/17 07:22 Eosinophils % (Manual) 0 % (0.0-4.3) 04/25/17 07:22 Basophils % (Manual) 0 % (0.0-1.8) 04/25/17 07:22 Metamyelocytes % 0 % 04/25/17 07:22 Myelocytes % 0 % 04/25/17 07:22 Promyelocytes % 0 % 04/25/17 07:22 Blast Cells % 0 % 04/25/17 07:22 Nucleated RBC % Not Reportable 04/25/17 07:22 Seg Neutrophils # Man 86.6 K/mm3 (1.8-7.7) H 04/25/17 07:22 Band Neutrophils # 3.2 K/mm3 04/25/17 07:22 Lymphocytes # (Manual) 1.4 K/mm3 (1.2-5.4) 04/25/17 07:22 Abs React Lymphs (Man) 0.0 K/mm3 04/25/17 07:22 Monocytes # (Manual) 0.9 K/mm3 (0.0-0.8) H 04/25/17 07:22 Eosinophils # (Manual) 0.0 K/mm3 (0.0-0.4) 04/25/17 07:22 Basophils # (Manual) 0.0 K/mm3 (0.0-0.1) 04/25/17 07:22 Metamyelocytes # 0.0 K/mm3 04/25/17 07:22 Myelocytes # 0.0 K/mm3 04/25/17 07:22 Promyelocytes # 0.0 K/mm3 04/25/17 07:22 Blast Cells # 0.0 K/mm3 04/25/17 07:22 Pathologist Review 04/24/17 19:29 WBC Morphology Not Reportable 04/25/17 07:22 Hypersegmented Neuts Not Reportable 04/25/17 07:22 Hyposegmented Neuts Not Reportable 04/25/17 07:22 Hypogranular Neuts Not Reportable 04/25/17 07:22 Smudge Cells Not Reportable 04/25/17 07:22 Toxic Granulation Not Reportable 04/25/17 07:22 Toxic Vacuolation Not Reportable 04/25/17 07:22 Dohle Bodies Few 04/25/17 07:22 Pelger-Huet Anomaly Not Reportable 04/25/17 07:22 Jeremiah Rods Not Reportable 04/25/17 07:22 Platelet Estimate Appears normal 04/25/17 07:22 Clumped Platelets Not Reportable 04/25/17 07:22 Plt Clumps, EDTA Not Reportable 04/25/17 07:22 Large Platelets Not Reportable 04/25/17 07:22 Giant Platelets Not Reportable 04/25/17 07:22 Platelet Satelliting Not Reportable 04/25/17 07:22 Plt Morphology Comment Not Reportable 04/25/17 07:22 RBC Morphology Not Reportable 04/25/17 07:22 Dimorphic RBCs Not Reportable 04/25/17 07:22 Polychromasia Few 04/25/17 07:22 Hypochromasia Not Reportable 04/25/17 07:22 Poikilocytosis 1+ 04/25/17 07:22 Anisocytosis 2+ 04/25/17 07:22 Microcytosis Not Reportable 04/25/17 07:22 Macrocytosis Not Reportable 04/25/17 07:22 Spherocytes Not Reportable 04/25/17 07:22 Pappenheimer Bodies Not Reportable 04/25/17 07:22 Sickle Cells Not Reportable 04/25/17 07:22 Target Cells Not Reportable 04/25/17 07:22 Tear Drop Cells Not Reportable 04/25/17 07:22 Ovalocytes Not Reportable 04/25/17 07:22 Helmet Cells Not Reportable 04/25/17 07:22 [place] Bodies Not Reportable 04/25/17 07:22 [place] Rings Not Reportable 04/25/17 07:22 Angelica Cells Not Reportable 04/25/17 07:22 Bite Cells Not Reportable 04/25/17 07:22 Crenated Cell Not Reportable 04/25/17 07:22 Elliptocytes Not Reportable 04/25/17 07:22 Acanthocytes (Spur) Not Reportable 04/25/17 07:22 Rouleaux Not Reportable 04/25/17 07:22 Hemoglobin C Crystals Not Reportable 04/25/17 07:22 Schistocytes Not Reportable 04/25/17 07:22 Malaria parasites Not Reportable 04/25/17 07:22 Anthony Bodies Not Reportable 04/25/17 07:22 Hem Pathologist Commnt No 04/25/17 07:22 PT 18.0 Sec. (12.2-14.9) H 04/24/17 Unknown INR 1.41 (0.87-1.13) H 04/24/17 Unknown APTT 34.6 Sec. (24.2-36.6) 04/24/17 Unknown Sodium 142 mmol/L (137-145) 04/28/17 05:16 Potassium 3.2 mmol/L (3.6-5.0) L 04/28/17 05:16 Chloride 98.6 mmol/L (98-107) 04/28/17 05:16 Carbon Dioxide 24 mmol/L (22-30) 04/28/17 05:16 Anion Gap 23 mmol/L 04/28/17 05:16 BUN 35 mg/dL (7-17) H 04/28/17 05:16 Creatinine 4.4 mg/dL (0.7-1.2) H 04/28/17 05:16 Estimated GFR 12 ml/min 04/28/17 05:16 BUN/Creatinine Ratio 8 % 10/03/17 05:16 Glucose 174 mg/dL (65-100) H 04/28/17 05:16 POC Glucose 265 (70-105) H 04/28/17 11:24 Lactic Acid 1.10 mmol/L (0.7-2.0) 04/25/17 08:37 Calcium 7.4 mg/dL (8.4-10.2) L 04/28/17 05:16 Total Bilirubin 0.30 mg/dL (0.1-1.2) 04/24/17 19:29 AST 11 units/L (5-40) 04/24/17 19:29 ALT 8 units/L (7-56) 04/24/17 19:29 Alkaline Phosphatase 266 units/L (35-129) H 04/24/17 19:29 C-Reactive Protein 19.80 mg/dL (0.00-1.30) H 04/27/17 07:40 Total Protein 5.6 g/dL (6.3-8.2) L 04/24/17 19:29 Albumin 2.2 g/dL (3.9-5) L 04/24/17 19:29 Albumin/Globulin Ratio 0.6 % 04/24/17 19:29 Lipase 57 units/L (13-60) 04/24/17 19:29 Random Vancomycin 2.3 ug/mL (0-40.0) 04/26/17 04:16 Blood Type O POSITIVE 04/27/17 11:20 Antibody Screen Negative 04/27/17 11:20 Crossmatch See Detail 04/27/17 11:20 - Imaging and Cardiology CT scan - abdomen: image reviewed (abdominal mass noted around the duodenum area. Discussed with son and patient)
[2017-04-29] MEDS: FLAGYL 500 MG/100 ML 500 MG/100 ML BAG IV SCH ×3 (02:00→18:02)
[2017-04-29 03:57] LABS: Hemoglobin 8.6 gm/dl (10.1-14.3); Mean Corpuscular HGB Conc 31 % (30-34); Mean Corpuscular Hemoglobin 30 pg (28-32); Mean Corpuscular Volume 97 fl (79-97); Platelet Count 303 K/mm3 (140-440); Red Blood Count 2.89 M/mm3 (3.65-5.03)
[2017-04-29 04:08] LABS: Calcium 7.6 mg/dL (8.4-10.2); Chloride 96.1 mmol/L (98-107); Potassium 3.4 mmol/L (3.6-5.0); Red Cell Distribution Width 21.9 % (13.2-15.2)
[2017-04-29 04:10] LABS: White Blood Count 80.8 K/mm3 (4.5-11.0)
[2017-04-29] MEDS: VANCOMYCIN PO PO SCH ×4 (07:00→17:46)
[2017-04-29] MEDS ORDERED: K-DUR PO NR (08:00)
[2017-04-29] MEDS: NOVOLOG SUB-Q SCH ×3 (08:00→17:30)
--- NOTE | 2017-04-29 09:05 | Progress Note ---
Assessment and Plan Assessment: 1) Sepsis: slightly better leukocytosis with leukemoid reaction. Etiology most likely due to C diff colitis +/- malignancy (?necrotic mass). -CRP=19 -WBC 98 --> 86 -->80K 2) Clostridium difficile colitis, severe: patient with diarrhea for 3 weeks. Exposed to broad spectrum antibiotics recently. -CT abd showed diffuse colon wall thickening 3) RUL lung mass: of unknown etiology, likely malignancy. Tissue diagnosis has not yet been obtained as bronchoscopic lung biopsy was unsuccessful in February 2017. CT guided biopsy was completed but sample from biopsy was too small. A repeat biopsy was planned during that last hospitalization but patient refused. The patient also saw thoracic surgery who feels that the patient is not a candidate for surgery. 4) ESRD on HD 5) Right IJ DVT 6) Sacral Wound stage II - with Enterococcus ? colonizer 7) RUQ large mass ? originating from duodenum or pancreas? unclear etiology Malignancy -CT abd showed 8.9x7.7x9.3 cm mass Plan: -patient/family is not considering hospice -continue vancomycin 250 mg PO QID and IV metronidazole -avoid broad spectrum antibiotics -prognosis guarded Thank you Dr Wilson for your consultation, will follow up with you. Wilda Kay MD Infectious Diseases Specialist [facility] ([facility] M [phone] O [phone] Subjective Date of service: 04/29/17 Principal diagnosis: leukocytosis Interval history: Remains feeling sick, still c/o abdominal pain. No fever. Current Antimicrobials: vanco IV 04/26 Metronidazole 04/26 Microbiology: Blood cultures: 04/25 ngtd Urine cultures: Respiratory cultures: Wound sacral cultures: 04/25 Enterococcus Stool cultures: Cdiff 04/25 positive Objective - Exam Narrative Exam: General appearance: alert ill-appearing Eyes: anicteric sclerae, moist conjunctivae; no lid-lag; PERRLA HENT: Atraumatic; oropharynx clear with moist mucous membranes and no mucosal ulcerations/no oral thrush; normal hard and soft palate. Normal external ears. Neck: Trachea midline; supple, no thyromegaly or lymphadenopathy Lungs: tacho rhonchi CV: RRR, no murmurs Abdomen: Soft, TTP diffusely Extremities: +tacho leg edema and arm edema Skin: sacral stage I-II no purulence Psych: Appropriate affect, alert and oriented to person, place and time. Neuro: alert and oriented x 3. Moving all extermities Lines: No CVL / PICC - Constitutional Vitals: Vital Signs Temp Pulse Resp BP Pulse Ox 98.6 F 90 18 118/78 96 04/28/17 20:00 04/28/17 22:28 04/28/17 22:00 04/28/17 22:28 04/28/17 22:00 Temperature -Last 24 Hours Temperature 98.6 F Temperature 98.7 F - Labs CBC & Chem 7: 04/29/17 03:29 04/29/17 03:29 Labs: Abnormal lab results 04/28/17 04/28/17 04/28/17 Range/Units 11:24 16:29 22:16 WBC (4.5-11.0) K/mm3 RBC (3.65-5.03) M/mm3 Hgb (10.1-14.3) gm/dl Hct (30.3-42.9) % RDW (13.2-15.2) % Potassium (3.6-5.0) mmol/L Chloride (98-107) mmol/L BUN (7-17) mg/dL Creatinine (0.7-1.2) mg/dL Glucose (65-100) mg/dL POC Glucose 265 H 221 H 318 H (70-105) Calcium (8.4-10.2) mg/dL 04/29/17 04/29/17 04/29/17 Range/Units 03:29 03:29 08:28 WBC 80.8 H* (4.5-11.0) K/mm3 RBC 2.89 L (3.65-5.03) M/mm3 Hgb 8.6 L (10.1-14.3) gm/dl Hct 28.0 L (30.3-42.9) % RDW 21.9 H (13.2-15.2) % Potassium 3.4 L (3.6-5.0) mmol/L Chloride 96.1 L (98-107) mmol/L BUN 40 H (7-17) mg/dL Creatinine 5.3 H (0.7-1.2) mg/dL Glucose 192 H (65-100) mg/dL POC Glucose 251 H (70-105) Calcium 7.6 L (8.4-10.2) mg/dL
--- NOTE | 2017-04-29 10:06 | Progress Note ---
Assessment and Plan Impression: * ESRD on HD MWF * AMS * Right upper lobe lung mass * RIJ acute DVT * Leukocytosis, persistent * Type II DM * Anemia secondary to ESRD * Secondary hyperparathyroidism * Hypokalemia Plan: * Continue hemodialysis MWF * UF as tolerated * ct noted, yes more evidence of mass and malignancy, agree with heme/onc pt is hospice appropriate * heme notes reviewed, agree with hospice ashu if patient continues to miss hd, she missed 2 weeks of dialysis * Anticoagulation per primary team * refused iv access placement, needs palliative care consultation, consider ethics consult * prbcs with hd today prn * eliquis to 2.5 bid in HD patient * Epogen for goal Hb 10-12 * Renal diet/fluid restriction * Adjust medication doses for renal function * poor overall prognosis * palliative care consult needed Subjective Date of service: 04/29/17 Principal diagnosis: leukocytosis Interval history: General appearance: well-developed, well-nourished, appears stated age EENT: PERRL, mucous membranes moist Neck: no JVD, no thyromegaly, no carotid bruit, supple, other (right IJ PermCath in place) Respiratory: Present: Clear to Ascultation Cardiology: regular, normal heart rate Gastrointestinal: normal, normoactive bowel sounds Integumentary: no rash, other (AV graft in her left upper arm. Good bruit and thrill) Objective - Exam Narrative Exam: General appearance: well-developed, well-nourished, appears stated age EENT: PERRL, mucous membranes moist Neck: no JVD, no thyromegaly, no carotid bruit, supple, other (right IJ PermCath in place) Respiratory: Present: Clear to Ascultation Cardiology: regular, normal heart rate Gastrointestinal: normal, normoactive bowel sounds Integumentary: no rash, other (AV graft in her left upper arm. Good bruit and thrill) - Vital Signs Vital signs: Vital Signs - 12hr 04/28/17 22:28 Pulse Rate 90 Blood Pressure 118/78 - Lab 04/29/17 03:29 04/29/17 03:29 Most recent lab results Calcium 7.6 mg/dL (8.4-10.2) L 04/29/17 03:29
[2017-04-29] MEDS: COREG PO SCH (10:07)
[2017-04-29] MEDS: Renal Caps PO SCH (10:09)
[2017-04-29] MEDS: ELIQUIS PO SCH (10:09)
--- NOTE | 2017-04-29 10:31 | Discharge Summary ---
Providers - Providers Date of Admission: 04/25/17 03:07 Attending physician: TOMI BELTRÁN MD 04/25/17 03:10 Consult to Wound/ET Nurse [CONS] Routine Reason For Exam: wound eval /heel and ankle 04/25/17 04:43 Consult to Physician [CONS] Routine Consulting Provider: CHARANJIT LOZANO Reason For Exam: ESRD on dialysis Place consult to:: ANSWERING SERVICE Notified:: YES Phone number called:: [phone] If yes, spoke with:: DERRICK Means called:: 08:35 Comment:: ESPERANZA Consult to Physician [CONS] Routine Consulting Provider: SCAR GONZALES Reason For Exam: Lung cancer, liver mass, marked leukocytosis Place consult to:: ANSWERING SERVICE Notified:: YES If yes, spoke with:: MANOLO Means called:: 08:45 Comment:: ESPERANZA 04/26/17 12:12 Consult to Physician [CONS] Routine Consulting Provider: PHIL BAEZA Reason For Exam: c.diffe colitis Place consult to:: dr. emmanuel Notified:: yes Phone number called:: [phone] Was contact made?: Yes If yes, spoke with:: dr. emmanuel Time called:: 13:10 Comment:: esperanza 04/26/17 17:51 Consult to PICC Line RN [CONS] Urgent Reason For Exam: need antibiotic stat Type Line:: Midline 04/27/17 09:16 Consult to Interventional Radiology [CONS] Urgent Consulting Provider: WALT ROGERS Reason For Exam: Iv line placement Place consult to:: KEN CONNELLY Notified:: Phone number called:: [phone] Was contact made?: Yes If yes, spoke with:: Time called:: 09:33 Comment:: MARIA M Primary care physician: [employer]STRA [employer]ER Hospitalization Reason for admission: hypoxic respiratory failure Condition: Stable Hospital course: Mrs. Tamez is a 66-year-old woman with past medical history for Right IJ DVT on eliquis hypertension, diabetes mellitus with neuropathy, foot drop, right internal jugular vein thrombosis, end-stage renal disease on hemodialysis mwf, and right upper lobe lung mass for which tissue diagnosis has not yet been obtained as bronchoscopic lung biopsy was unsuccessful sometime in February 2017. Therefore, recommendations were to have CT guided biopsy. This was completed but but sample from biopsy was too small. A repeat biopsy was planned but patient refused. The patient also saw thoracic surgery who felt that the patient is not a candidate for surgery; therefore, patient was discharged home on 04/07/17. She has missed hemodialysis sessions and now presents with volume overload, shortness of breath with nausea. Patient was seen by hematology oncologist with concern of metastic disease. tissue diagnosis was requested but patient vehemently refused. The patient verbalized understanding, Hematology was equally concerned that the >80k wbc is likely a leukemoid reaction from malignancy, patient was never the less started on treatment with antibiotics, she intermittently will refuse dialysis while in house then after discussion will call back for the dialysis to be done, this was explained to the son also. Nephrology, hematology both recommend hospice. The patient had intermittent altered sensorium and will resolve almost immediately, she will scream for the nurse and when the nurse comes, she would not remember she called or why she called. Attempt to remove permacath and replace with another access was refused by the patient, initial neck line established in the ED was discontinued and this was also explained to the son and the patient the risk these lines pose. -Acute hypoxic respiratory failure due to volume overload -Metabolic encephalopathy secondary to sepsis -Intractable cough -End Stage renal disease, noncompliant with hemodialysis related to volume overload -Severe CDiff collitis -Severe leukocytosis, suspicious for malignancy from lung mass vs infection -Sepsis from bacterial AGE with c. diffe, poa -Right IJ DVT on Eliquis, -RUL lung mass: of unknown etiology, likely malignancy. Tissue diagnosis has not yet been obtained as bronchoscopic lung biopsy was unsuccessful in February 2017. CT guided biopsy was completed but sample from biopsy was too small. A repeat biopsy was planned during that last hospitalization but patient refused. The patient also saw thoracic surgery who feels that the patient is not a candidate for surgery. PATIENT REFUSES REPEAT BIOPSY -Sacral Wound stage II - with Enterococcus ? colonizer, WOUND CARE CONSULT. POA -RUQ large mass ? -Hypoglycemic===>gave glucagon im and blood glucose stabilized. Disposition: [facility] ([facility]) Time spent for discharge: 35 mins Core Measure Documentation - Palliative Care Palliative Care/ Comfort Measures: Hospice Care - Core Measures Any of the following diagnoses?: none - VTE Discharge Requirements Deep Vein Thrombosis/Pulmonary Embolism Present on Admission: No Exam - Physical Exam Narrative exam: VITAL SIGNS: Reviewed. GENERAL: The patient appeared CRITICAL ILL. INTERACTABLE COUGHING SPELL, Vital signs as documented. HEAD: No signs of head trauma. EYES: Pupils are equal. Extraocular motions intact. EARS: Hearing grossly intact. MOUTH: Oropharynx is normal. NECK: No adenopathy, no JVD. CHEST: Chest with clear breath sounds bilaterally. No wheezes, rales, or rhonchi. CARDIAC: Regular rate and rhythm. S1 and S2, without murmurs, gallops, or rubs. VASCULAR: No Edema. Peripheral pulses normal and equal in all extremities. ABDOMEN: Soft, without detectable tenderness. No sign of distention. No rebound or guarding, and no masses palpated. Bowel Sounds normal. MUSCULOSKELETAL: Good range of motion of all major joints. Extremities without clubbing, cyanosis or edema. NEUROLOGIC EXAM: Alert and oriented x 3. No focal sensory or strength deficits. Lethergic, Speech normal. Follows commands. PSYCHIATRIC: Mood normal. SKIN: saral pressure ulcer - Constitutional Vitals: Temp Pulse Resp BP Pulse Ox 98.6 F 90 18 118/78 96 04/28/17 20:00 04/28/17 22:28 04/28/17 22:00 04/28/17 22:28 04/28/17 22:00 Plan Activity: advance as tolerated, fall precautions Diet: renal Special Instructions: record daily weights, record daily BP diary Follow up with: PRIMARY CARE, [Primary Care Provider] - 3-5 Days CHARANJIT LOZANO MD [Staff Physician] - 7 Days Prescriptions: Apixaban [Eliquis] 2.5 mg PO Q12HR #30 tablet HYDROcodone/HOMATROP 5-1.5 [HYDROcodone-Homatropin 5-1.5 mg per 5 ML] 5 ml PO Q6H PRN #20 udc PRN Reason: Cough Oxycodone HCl/Acetaminophen [Percocet 10/325 mg] 1 each PO Q6HR PRN #14 tablet PRN Reason: Pain Vancomycin Po 250 mg PO Q6HR 14 Days
[2017-04-29] MEDS ORDERED: POTASSIUM CHLORIDE FEEDTUBE NR ×2 (11:00→19:30)
[2017-04-29] MEDS: MORPHINE IV PRN (11:35)
[2017-04-29] MEDS: ZOFRAN IV PRN (11:36)
[2017-04-29] MEDS: PROCRIT IV PRN (11:37)
[2017-04-29] MEDS ORDERED: NACL 0.9 (PRIMING MACHINE ONLY DIALYSIS) MC ONE (12:07)
[2017-04-29 17:00] VITALS: BP 118/69
[2017-04-29] MEDS: TYLENOL PO PRN (17:54)
== END 2017-04-29 21:35 | disposition hospice, home (50) | DRG 871 ==
LOC: ED 18:08 → CC2 04-25 03:07
PROVIDERS: ADMIT Internal Medicine; ATTEND Internal Medicine
PROC: 5A1D70Z Performance of Urinary Filtration, Intermittent, Less than 6 Hours Per Day (ICD-10-PCS; 2017-04-25)
PROC: 30233N1 Transfusion of Nonautologous Red Blood Cells into Peripheral Vein, Percutaneous Approach (ICD-10-PCS; principal; 2017-04-27)
DX: A41.50 Gram-negative sepsis, unspecified (principal); N18.6 End stage renal disease; J96.01 Acute respiratory failure with hypoxia; G93.41 Metabolic encephalopathy; E87.2 Acidosis; N25.81 Secondary hyperparathyroidism of renal origin; A04.72 Enterocolitis due to Clostridium difficile, not specified as recurrent; I82.C11 Acute embolism and thrombosis of right internal jugular vein; I12.0 Hypertensive chronic kidney disease with stage 5 chronic kidney disease or end stage renal disease; R91.8 Other nonspecific abnormal finding of lung field; E87.70 Fluid overload, unspecified; E87.6 Hypokalemia; E11.22 Type 2 diabetes mellitus with diabetic chronic kidney disease; M19.90 Unspecified osteoarthritis, unspecified site; E78.5 Hyperlipidemia, unspecified; I25.10 Atherosclerotic heart disease of native coronary artery without angina pectoris; F10.10 Alcohol abuse, uncomplicated; Y90.9 Presence of alcohol in blood, level not specified; B95.2 Enterococcus as the cause of diseases classified elsewhere; D63.1 Anemia in chronic kidney disease; Z53.29 Procedure and treatment not carried out because of patient's decision for other reasons; E11.649 Type 2 diabetes mellitus with hypoglycemia without coma; L89.152 Pressure ulcer of sacral region, stage 2; Z87.891 Personal history of nicotine dependence; Z86.73 Personal history of transient ischemic attack (TIA), and cerebral infarction without residual deficits; Z79.01 Long term (current) use of anticoagulants
CPT/HCPCS: 36415; 36430; 74000; 74176; 80048; 80053; 80202; 82140; 82962; 83690; 85007; 85014; 85018; 85025; 85027; 85610; 85730; 86140; 86850; 86900; 86901; 86920; 87040; 87045; 87076; 87116; 87186; 87493; 94760; 99285; J0885; J1610; J1644; J1815; J1818; J2270; J2405; J2543; J3370; J7030; J7040; P9016